=== PATIENT | female | born 1975 | race Two or more races ===

== ENCOUNTER 2021-06-26 11:04 | Emergency (ER) | payer OTHER, SELFPAY ==
--- NOTE | ~2021-06-26 | XR_ITS ---
EXAMINATION: XR CHEST CLINICAL INFORMATION: Shortness of breath COMPARISON: None TECHNIQUE: Frontal view of the chest was obtained. FINDINGS: No significant abnormality is noted involving the heart, lungs, mediastinum, bony thorax or soft tissues. XR/XR chest 1V IMPRESSION: Unremarkable examination.
[2021-06-26 11:44] VITALS: BP 117/84; PULSE 56; RESP 16; TEMP 36.4; O2SAT 98; BMI 44.9
[2021-06-26 12:08] LABS: COVID-19 Test Negative (Negative); IDNOW Serial# 9DD0AD1C
[2021-06-26 12:16] VITALS: BP 128/69; PULSE 57; RESP 18; TEMP 36.1; O2SAT 99
--- NOTE | 2021-06-26 12:34 | ED.SOB ---
HPI - SOB/Dyspnea General Chief Complaint: Dyspnea Stated Complaint: ASTHMA DIFF BREATHING Time Seen by Provider: 06/26/21 12:27 Source: patient Mode of arrival: ambulatory Limitations: no limitations History of Present Illness HPI Narrative: 46 years old female with history of asthma came in with difficulty breathing. Difficulty breathing for 1 day, feels tightness and wheezing in her chest, patient with known history of asthma. Patient also feels generalized weakness, body ache, no recent exposure to sick contacts. Patient was taking her home medication for asthma. Patient declines recent travel or prolonged immobilization. No lower extremities tenderness. Related Data Previous Rx's Medication Instructions Recorded albuterol sulfate 2.5 mg INHALATION QID PRN #75 ml 06/26/21 albuterol sulfate 90 mcg/actuation 1 inh INHALATION QID PRN #6.7 g 06/26/21 aerosol inhaler prednisone 20 mg tablet 20 mg PO BID #10 tab 06/26/21 Allergies Allergy/AdvReac Type Severity Reaction Status Date / Time Seasonal Allergies Allergy Unknown itching Uncoded 06/10/19 00:00 Review of Systems Review of Systems: All other systems are reviewed and are negative Constitutional: Reports as per HPI and Reports no additional constitutional complaints Eyes: Reports as per HPI and Reports no additional eye complaints Reports system reviewed and no additional complaints, except as documented Cardiovascular: Reports as per HPI and Reports no additional cardiovascular complaints Respiratory: Reports as per HPI and Reports no additional respiratory complaints Gastrointestinal: Reports as per HPI and Reports no additional gastrointestinal complaints Genitourinary: Reports no additional female genitourinary complaints Musculoskeletal: Reports no additional musculoskeletal complaints Skin/Breast: Reports system reviewed and no additional complaints, except as docu Psychiatric: Reports no additional psychiatric complaints Endocrine: Reports no additional endocrine complaints Hematologic/Lymphatic: Reports no additional hematologic/lymphatic complaints Allergic/Immunologic: Reports no additional allergic/immunologic complaints Reports system reviewed and no additional complaints, except as documented and Reports Abnormal speech present PMFSH Past Medical History Medical History Asthma Eczema Surgical History History of tubal ligation Hx of cholecystectomy Social History Social History Advance Directives: No Advance Directives Information Provided: No Patient : No Physical Exam Vital Signs: Vital Signs: Last Vital Signs Temp 97 F 06/26/21 12:16 Pulse 49 L 06/26/21 13:08 Resp 18 06/26/21 12:16 BP 128/69 06/26/21 12:16 Pulse Ox 99 06/26/21 12:16 Body Mass Index 44.9 Vital signs have been reviewed as appeared to be correct. Blood pressure normal. Heart rate normal. Respiration rate normal. Temperature normal. Oxygen saturation normal. Appearance: Alert. Oriented X3. No acute distress. Head: Normal external exam. Normocephalic. Atraumatic. No Torres signs noted. No raccoon eyes noted Eyes: PERRLA. EOMI. Conjunctiva and sclera normal. Eyelids normal. ENT: TM's Normal. Pharynx normal. Uvula midline. Moist mucous membranes. No trismus noted. No drooling noted. No muffled voice noted. Neck: Normal inspection. Neck supple. FROM. No adenopathy. Thyroid Normal. No meningeal signs. No neck mass noted. CVS: Normal heart rate and rhythm. Heart sound normal. No murmurs noted. Pulses normal throughout. Respiratory: No respiratory distress. Painless inspiration. Breath sounds normal. Diffuse expiratory wheezing, with prolonged expiration, no rales, no crackles. No accessory muscle usage noted or decreased air movement noted. Abdomen: Soft and nontender. Bowel sounds normal in all 4 quadrants. No distention noted. No organomegaly noted. No visible injury noted. Back: No CVA tenderness. Full range of motion noted. Skin: Skin warm and dry. Normal skin color. Normal skin turgor. No rashes/lesions/lacerations noted. Extremities: No lower extremity edema. Extremities exhibit normal range of motion. Extremities nontender. Neuro: Oriented X 3. Cranial nerve exam: II-XII are grossly intact No motor deficit. No sensory deficit. Reflexes normal. Course Course Course Narrative: Assessment and plan. 46-year-old female history of asthma came in with difficulty breathing, physical exam/chest x-ray is consistent with acute asthma exacerbation, patient felt better with bronchodilator and prednisone given in the emergency department. Will discharge the patient home on prednisone and bronchodilator. MDM - SOB/Dyspnea Medical Records Attestation: I reviewed the patient's medical records. Lab Data Attestation: I reviewed the patient's lab results. Labs: Lab Results 06/26/21 Range/Units 11:49 COVID-19 ([facility]) Negative (Negative) COVID-19 Clin Com See Note Imaging Data Chest x-ray: Radiologist's impression: Unremarkable examination Discharge Plan Discharge Clinical Impression: Asthma with exacerbation Patient Disposition: Home, Self-Care Instructions: Asthma (ED) Prescriptions: New albuterol sulfate 2.5 mg /3 mL (0.083 %) solution for nebulization 2.5 mg inhalation QID PRN (Reason: shortness of breath or wheezing) Qty: 75 RF: 0 albuterol sulfate 90 mcg/actuation HFA aerosol inhaler 1 inh inhalation QID PRN (Reason: shortness of breath or wheezing) Qty: 6.7 RF: 0 prednisone 20 mg tablet 20 mg PO BID Qty: 10 RF: 0 Referrals: Physician,Unknown J [Primary Care Provider] - 2 days Stand Alone Forms: Work/School Release
[2021-06-26] MEDS: predniSONE 20 MG TABLET 60 MG PO (12:39)
[2021-06-26] MEDS: Albuterol/Iprat 2.5/0.5MG 3 ML AMPUL.NEB INHALE (13:07)
[2021-06-26] MEDS: Albuterol Sulfate (0.083%) 2.5 MG/3 ML VIAL.NEB INHALE (13:07)
[2021-06-26 13:08] VITALS: PULSE 49; O2SAT 99
== END 2021-06-26 16:10 | disposition home or self-care (01) ==
PROVIDERS: Emergency Provider Emergency Medicine
DX: J45.901 Unspecified asthma with (acute) exacerbation (principal); Z20.822 Contact with and (suspected) exposure to COVID-19
CPT/HCPCS: 36415; 71045; 87635; 94640; 99283; 99284

== ENCOUNTER 2021-12-06 08:19 | Emergency (ER) | payer BC, SELFPAY ==
--- NOTE | ~2021-12-06 | XR_ITS ---
EXAMINATION: XR CHEST CLINICAL INFORMATION: Cough. COMPARISON: None TECHNIQUE: 2 views of the chest were obtained. FINDINGS: No significant abnormality is noted involving the heart, lungs, mediastinum, bony thorax or soft tissues. XR/XR chest 2V IMPRESSION: Unremarkable chest examination.
[2021-12-06 08:56] VITALS: BP 124/68; PULSE 83; RESP 18; TEMP 37.1; O2SAT 99; BMI 47.2
--- NOTE | 2021-12-06 09:08 | ED_ITS ---
HPI - General Adult General Chief complaint: General Medical Stated complaint: cough fever Time Seen by Provider: 12/06/21 08:21 Source: patient Mode of arrival: ambulatory Limitations: no limitations History of Present Illness HPI narrative: 46 yo female with a history of asthma here with complaints of cough, subjective fevers, chills, body aches, JOSUE since Monday. Granddaughter is flu A positive Related Data Previous Rx's Medication Instructions Recorded albuterol sulfate 2.5 mg (3 mL) INHALATION QID PRN 06/26/21 #75 ml albuterol sulfate 90 mcg/actuation 1 inh INHALATION QID PRN #6.7 g 06/26/21 aerosol inhaler prednisone 20 mg tablet 20 mg PO BID #10 tab 06/26/21 oseltamivir 75 mg capsule (Tamiflu) 75 mg PO Q12H 5 Days #10 cap 12/06/21 prednisone 20 mg tablet 40 mg PO DAILY #8 tab 12/06/21 Allergies Allergy/AdvReac Type Severity Reaction Status Date / Time Seasonal Allergies Allergy Unknown itching Uncoded 06/10/19 00:00 Review of Systems Review of Systems: Yes all other systems are reviewed and are negative Constitutional: Constitutional: Reports no additional constitutional complaints, Reports body ache(s), Reports chills, Reports fever(s), Reports headache(s) and Denies weakness Eyes: Eyes: Reports no additional eye complaints and Denies change in vision ENT: Reports system reviewed and no additional complaints, except as documented, Denies dizziness, Reports headache(s), Reports nasal congestion, Denies nasal discharge and Denies neck pain Cardiovascular: Cardiovascular: Reports no additional cardiovascular complaints, Denies chest pain, Denies leg edema and Denies dyspnea Respiratory: Respiratory: Reports no additional respiratory complaints, Reports cough and Denies dyspnea Gastrointestinal: Gastrointestinal: Reports no additional gastrointestinal complaints, Denies abdominal pain, Denies diarrhea, Denies nausea and Denies vomiting Genitourinary: Genitourinary: Reports no additional female genitourinary complaints and Denies urinary incontinence Musculoskeletal: Musculoskeletal: Reports no additional musculoskeletal complaints, Denies back pain, Denies arthralgias, Denies joint swelling, Denies neck pain, Denies numbness and Denies tingling Integumentary/Breasts: Skin/Breast: Reports system reviewed and no additional complaints, except as docu and Denies rash Neurologic: Reports system reviewed and no additional complaints, except as documented, Denies dizziness, Reports headache(s), Denies numbness, Denies tingling and Denies weakness [facility] Past Medical History Attestation statement: The following information was validated with the patient. Source: old records reviewed and nursing notes reviewed Medical History Asthma Eczema Surgical History History of tubal ligation Hx of cholecystectomy Social History Social History Advance Directives: No Advance Directives Information Provided: No Patient : No Physical Exam ED Vital Signs: Vital Signs - 24 hr 12/06/21 08:56 12/06/21 09:31 Temperature 98.7 F Pulse Rate 83 89 Respiratory Rate 18 18 Blood Pressure 124/68 Pulse Oximetry 99 BMI result Body Mass Index 47.2 Const General: cooperative, healthy appearing, comfortable and no acute distress Orientation/consciousness: patient oriented x3 Limitations: no limitations HENMT Head: Yes normal to inspection Ears: hearing grossly normal bilaterally and TM's normal bilaterally General nose exam: Normal external nose present Face and sinus: Yes normal facial exam Mouth: Normal oral and palatal mucosa present Teeth and gingiva: dentition normal Throat: Yes posterior oropharynx normal, Yes tonsils normal and Yes uvula midline Eyes General: appearance normal, both eyes and all related structures Pupils: Equal, round and reactive pupils present Neck Neck: Yes normal visual inspection, Yes full ROM, Yes no lymphadenopathy and Yes no meningeal signs Chest Chest palpation & inspection: normal inspection of the chest Resp Other: Mild expiratory wheezing Effort & Inspection: normal respiratory effort Cardio Rate: regular rate Rhythm: regular rhythm Peripheral pulses: Peripheral pulses 2+ throughout GI Inspection: Yes normal to inspection Palpation (GI): Soft to palpation and nontender General: Yes no CVA tenderness Back/Spine/Pelvis Back: no CVA tenderness Thoracic/Lumbar Spine: thoracic and lumbar spine normal to inspection Skin General skin exam: no rashes or lesions noted Neuro General: patient oriented x3, moves all extremities and no meningeal signs Cranial nerves: Yes Equal, round and reactive pupils present Extrem General: Yes normal to inspection, Yes no pedal edema and Yes no calf tenderness Course Course Course Narrative: 46-year-old female here with flu-like symptoms with exposure to flu. Patient has mild expiratory wheezing. Will give albuterol, p.o. prednisone, check chest x-ray. Will also check flu and COVID testing 1045-flu screen is positive. Chest x-ray shows no acute finding. Wheezing improved after receiving albuterol. Will discharge home with p prednisone course for asthma exacerbation Tamiflu for flu. Reviewed worrisome signs symptoms when to return to the emergency department. Comfortable discharge home. Medical Decision Making Medical Records Medical records reviewed: Yes I reviewed the patient's medical records. Lab Data Lab results reviewed: Yes I reviewed the patient's lab results. Labs: Lab Results 12/06/21 12/06/21 Range/Units 09:35 09:35 COVID-19 ([facility]) Negative (Negative) COVID-19 Clin Com See Note Influenza Type A ([facility]) Positive A (Negative) Influenza Type B ([facility]) Negative (Negative) Influenza A & B Note See Note Discharge Plan Discharge Clinical Impression: Influenza A Patient Disposition: Home, Self-Care Instructions: Influenza (DC) Additional Instructions: Increase fluids, rest Take Motrin or Tylenol as needed for pain or fever Continue your home medications for asthma Prescriptions: New prednisone 20 mg tablet 40 mg PO DAILY Qty: 8 0RF oseltamivir [Tamiflu] 75 mg capsule 75 mg PO Q12H 5 Days Qty: 10 0RF No Action albuterol sulfate 2.5 mg /3 mL (0.083 %) solution for nebulization 2.5 mg inhalation QID PRN (Reason: shortness of breath or wheezing) Qty: 75 0RF albuterol sulfate 90 mcg/actuation HFA aerosol inhaler 1 inh inhalation QID PRN (Reason: shortness of breath or wheezing) Qty: 6.7 0RF prednisone 20 mg tablet 20 mg PO BID Qty: 10 0RF Referrals: Physician,Unknown J [Primary Care Provider] - 2 days Stand Alone Forms: Work/School Release Interventions: ED Discharge Assessment Last Done: 12/06/21 10:42 Discharge Date/Time: 12/06/21 10:43
[2021-12-06] MEDS: Albuterol Sulfate 90 MCG 8 GM INHALER 4 PUFF INHALE (09:28)
[2021-12-06 09:31] VITALS: PULSE 89; RESP 18; O2SAT 97
[2021-12-06 09:54] LABS: COVID-19 Test Negative (Negative); IDNOW Serial# 16C4AD1C
[2021-12-06 09:56] LABS: Influenza A Positive (Negative); Influenza B2 Negative (Negative)
[2021-12-06] MEDS: predniSONE 20 MG TABLET 60 MG PO (10:36)
== END 2021-12-06 10:43 | disposition home or self-care (01) ==
PROVIDERS: Emergency Provider Emergency Medicine
DX: J11.1 Influenza due to unidentified influenza virus with other respiratory manifestations (principal); J45.909 Unspecified asthma, uncomplicated; Z20.822 Contact with and (suspected) exposure to COVID-19
CPT/HCPCS: 71046; 87502; 87635; 94640; 99282; 99284

== ENCOUNTER 2022-03-24 11:47 | Emergency (ER) | payer OTHER, BC, SELFPAY ==
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
--- NOTE | ~2022-03-24 | XR_ITS ---
EXAMINATION: XR TIBIA AND FIBULA, LEFT CLINICAL INFORMATION: Osteomyelitis. COMPARISON: None TECHNIQUE: AP view of the left tibia and fibula. FINDINGS: No acute fracture or dislocation. No concerning lytic or blastic osseous lesion. No periosteal reaction. No abnormal soft tissue calcification. XR/XR tibia fibula LT 2V IMPRESSION: No acute osseous abnormality.
[2022-03-24 11:58] VITALS: BP 140/76; PULSE 62; RESP 18; TEMP 36.6; O2SAT 99; BMI 49.1
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
== END 2022-03-24 14:39 | disposition home or self-care (01) ==
PROVIDERS: Emergency Provider Emergency Medicine
DX: S13.4XXA Sprain of ligaments of cervical spine, initial encounter (principal); R51.9 Headache, unspecified; M79.605 Pain in left leg; M54.2 Cervicalgia; V43.52XA Car driver injured in collision with other type car in traffic accident, initial encounter; Y93.9 Activity, unspecified; Y92.410 Unspecified street and highway as the place of occurrence of the external cause; Y99.9 Unspecified external cause status; Z79.899 Other long term (current) drug therapy
CPT/HCPCS: 70450; 73590; 99283; 99284

== ENCOUNTER 2022-03-26 09:26 | Emergency (ER) | payer OTHER, BC, SELFPAY ==
[2022-03-26 09:44] VITALS: BP 131/57; PULSE 56; RESP 14; TEMP 36; O2SAT 97; BMI 49.1
[2022-03-26] MEDS: 0.9 % Sodium Chloride 1,000 ML 999 ML IV (11:18)
[2022-03-26] MEDS: Ketorolac Tromethamine 15 MG/ML VIAL IVPUSH (11:22)
[2022-03-26] MEDS: diphenhydrAMINE HCL 50 MG/ML VIAL 12.5 MG IVPUSH (11:27)
[2022-03-26] MEDS: Metoclopramide HCl 10 MG/2 ML VIAL IVPUSH (11:27)
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
== END 2022-03-26 12:36 | disposition home or self-care (01) ==
PROVIDERS: Emergency Provider Emergency Medicine; PCP Physician Assistant Medical
DX: Z04.1 Encounter for examination and observation following transport accident (principal); F07.81 Postconcussional syndrome; R51.9 Headache, unspecified; R11.0 Nausea
CPT/HCPCS: 96361; 96374; 96375; 99284; J1200; J1885; J2765

== ENCOUNTER 2022-06-14 08:26 | Emergency (ER) | payer BC, SELFPAY ==
--- NOTE | ~2022-06-14 | XR_ITS ---
EXAMINATION: XR CHEST CLINICAL INFORMATION: Fall COMPARISON: November 2021. TECHNIQUE: 2 views of the chest were obtained. Patient slightly rotated to the right. FINDINGS: No significant abnormality is noted involving the heart, lungs, mediastinum, bony thorax or soft tissues. Small spondylitic changes of thoracic spine again observed. XR/XR chest 2V IMPRESSION: Unremarkable examination. No significant change since previous examination.
--- NOTE | ~2022-06-14 | XR_ITS ---
EXAMINATION: XR SHOULDER, LEFT CLINICAL INFORMATION: Left shoulder pain. COMPARISON: None TECHNIQUE: AP external rotation, Grashey, scapular Y, and axillary views of the left shoulder. FINDINGS: The bones and soft tissues are normal. No fracture. Glenohumeral and acromioclavicular alignment is anatomic with normal joint space. No abnormal soft tissue calcifications. XR/XR shoulder LT min 2V IMPRESSION: Unremarkable left shoulder.
[2022-06-14 08:59] VITALS: BP 177/63; PULSE 61; RESP 18; TEMP 37.1; O2SAT 98; BMI 49.1
--- NOTE | 2022-06-14 09:29 | ED.FALL ---
HPI - Fall General Chief Complaint: Fall Stated Complaint: fall 06/11/22 rib pain, nauseous Time Seen by Provider: 06/14/22 09:28 Source: patient Mode of arrival: ambulatory Limitations: no limitations History of Present Illness HPI Narrative: 47 yo female with a PMH of diabetes, asthma, & eczema presents to the ER with reports of rib pain and left shoulder pain s/p trip and fall 3 days ago. The patient reports she tripped and fell on concrete while walking, and landed with her arms out and her elbows flexed. She denies head strike, LOC, or being on daily blood thinners. The patient reports the pain is primarily bilateral at the lower rib cage and left shoulder pain. The pain rib cage pain increases with palpation, and movement. The left shoulder pain increases with movement. The patient reports the pain has prevented her from working. The patient is not on blood thinners. MD complaint: fall Onset (ago): day(s) (3) Fall from: other (walking ) Place fall occurred: street Loss of consciousness: none Prolonged down time: no Symptoms prior to fall: none Location of injury: chest and other (left shoulder) Location of injury - extremities: left: shoulder Severity: moderate Quality: sharp Associated symptoms (after fall): denies Related Data Previous Rx's Medication Instructions Recorded albuterol sulfate 2.5 mg/3 mL 2.5 mg (3 mL) inhalation QID PRN 06/26/21 (0.083 %) solution for nebulization shortness of breath or wheezing #75 mL albuterol sulfate 90 mcg/actuation 1 inh inhalation QID PRN shortness 06/26/21 aerosol inhaler of breath or wheezing #6.7 grams prednisone 20 mg tablet 20 mg PO BID #10 tabs 06/26/21 oseltamivir 75 mg capsule (Tamiflu) 75 mg PO Q12H 5 days #10 caps 12/06/21 prednisone 20 mg tablet 40 mg PO DAILY #8 tabs 12/06/21 ptktkfthwa-lekdwmilmvnzw-ynazhyks 1 cap PO Q4-6H PRN headache #14 03/26/22 50 mg-300 mg-40 mg capsule caps (Fioricet) cyclobenzaprine 10 mg tablet 10 mg PO TID PRN muscle spasm #10 06/14/22 tabs lidocaine 5 % topical patch 1 patch topical DAILY #15 ea 06/14/22 naproxen 500 mg tablet 500 mg PO BID PRN pain #20 tabs 06/14/22 Allergies Allergy/AdvReac Type Severity Reaction Status Date / Time Seasonal Allergies Allergy Unknown itching Uncoded 06/10/19 00:00 Review of Systems Review of Systems: Cardiovascular: + Chest Pain located at the lower rib cage, No SOB, No Orthopnea, No Edema Respiratory: No Cough, No Sputum, No Wheezing, + dyspnea Gastrointestinal: No Nausea, No Vomiting, No Diarrhea, No abdominal Pain Musculoskeletal: + left shoulder joint pain, No Myalgias Skin: + abrasion on left elbow, No Skin Lesions, No rash Neuro: No Weakness, No Numbness, No Dizziness, No Headache Heme/Lymph: No Bruising, No Lymphadenopathy Yes all other systems are reviewed and are negative [facility] Past Medical History Medical History Asthma Eczema Surgical History History of tubal ligation Hx of cholecystectomy Social History Social History Advance Directives: No Advance Directives Information Provided: Yes Physical Exam Vital Signs: Vital Signs: Last Vital Signs Temp 98.8 F 06/14/22 08:59 Pulse 61 06/14/22 08:59 Resp 18 06/14/22 08:59 BP 177/63 H 06/14/22 08:59 Pulse Ox 98 06/14/22 08:59 O2 Del Method 06/14/22 08:59 BMI result Body Mass Index 49.1 Appearance: Alert. Oriented X3. No acute distress. Eyes: Pupils equal, round and reactive to light. ENT: Pharynx normal. Neck: Normal inspection. Neck supple. CVS: Normal heart rate and rhythm. Pulses normal. Tender to palpation of the anterior aspect of the lower ribcage bilaterally. Respiratory: No respiratory distress. Breath sounds normal, clear to auscultation bilaterally. Abdomen: Soft and nontender. +BS x4 Skin: Abrasion noted on the left elbow. Skin warm and dry. Normal skin color. Normal skin turgor. No rashes. Extremities: No lower extremity edema. Neuro: Oriented X 3. No motor deficit. No sensory deficit. No weakness. Course Course Course Narrative: 9:45 47 female with PMH of diabetes, asthma, & eczema presents to the ER with reports of rib pain and left shoulder pain s/p trip and fall 3 days ago. Patient has increase lower chest pain and left shoulder pain with with movement. Exam is significant for tenderness to palpation of the lower chest pain, full strength and ROM of left shoulder. Plan: Chest X-rays order, Left shoulder X ray ordered. low clinical suspicion for rib fracture. Reevaluation(s) Reevaluation #1: x-rays without traumatic injury. Most likely soft tissue contusion, possible bruising of rib. Will treat symptomatically as with NSAID, Lidoderm, muscle relaxer. Work note provided per request. She will follow-up with her PCP. Stable for discharge home. oatient agrees wt plan MDM - Fall Imaging Data Chest x-ray: Radiologist's impression: FINDINGS: No significant abnormality is noted involving the heart, lungs, mediastinum, bony thorax or soft tissues. Small spondylitic changes of thoracic spine again observed. XR/XR chest 2V IMPRESSION: Unremarkable examination. No significant change since previous examination. Discharge Plan Discharge Clinical Impression: Chest wall contusion, Acute shoulder pain Patient Disposition: Home, Self-Care Instructions: Contusion in Adults (ED), Shoulder Pain (ED) Additional Instructions: Your x-rays today were unremarkable, no traumatic injuries. Your injuries are most likely due to soft tissue contusion. treatment is supportive care. Pain will improve with time. Recommend taking the prescribed medications as directed as needed for pain. Use ice several times a day to the areas of discomfort. Rest no strenuous activity. Follow-up with your primary care doctor. If you develop new or worsening symptoms call 911 or come back to the ER for further evaluation. Prescriptions: New cyclobenzaprine 10 mg tablet 10 mg PO TID PRN (Reason: muscle spasm) Qty: 10 0RF naproxen 500 mg tablet 500 mg PO BID PRN (Reason: pain) Qty: 20 0RF lidocaine 5 % adhesive patch,medicated 1 patch topical DAILY Qty: 15 0RF Rx Instructions: leave on most painful area for up to 12 hrs No Action albuterol sulfate 2.5 mg /3 mL (0.083 %) solution for nebulization 2.5 mg inhalation QID PRN (Reason: shortness of breath or wheezing) Qty: 75 0RF albuterol sulfate 90 mcg/actuation HFA aerosol inhaler 1 inh inhalation QID PRN (Reason: shortness of breath or wheezing) Qty: 6.7 0RF prednisone 20 mg tablet 20 mg PO BID Qty: 10 0RF prednisone 20 mg tablet 40 mg PO DAILY Qty: 8 0RF oseltamivir [Tamiflu] 75 mg capsule 75 mg PO Q12H 5 Days Qty: 10 0RF eoyuupvjkq-mtpxibltwljbx-amgk [Fioricet] 50-300-40 mg capsule 1 cap PO Q4-6H PRN (Reason: headache) Qty: 14 0RF Referrals: Maria Elena Miller MD [Primary Care Provider] - Stand Alone Forms: Work/School Release Interventions: ED Discharge Assessment Last Done: 06/14/22 11:43 Discharge Date/Time: 06/14/22 11:44
== END 2022-06-14 11:44 | disposition home or self-care (01) ==
PROVIDERS: Emergency Provider Emergency Medicine; PCP Internal Medicine
DX: S20.213A Contusion of bilateral front wall of thorax, initial encounter (principal); M25.512 Pain in left shoulder; R07.81 Pleurodynia; W01.0XXA Fall on same level from slipping, tripping and stumbling without subsequent striking against object, initial encounter; Y93.9 Activity, unspecified; Y92.9 Unspecified place or not applicable; Y99.9 Unspecified external cause status; Z79.899 Other long term (current) drug therapy
CPT/HCPCS: 71046; 73030; 99282; 99283

== ENCOUNTER 2022-08-25 09:20 | Outpatient (REF) | payer OTHER, SELFPAY ==
--- NOTE | ~2022-08-25 | XR_ITS ---
EXAMINATION: XR CHEST CLINICAL INFORMATION: Morbid obesity COMPARISON: June 14, 2022 TECHNIQUE: 2 views of the chest were obtained. FINDINGS: No significant abnormality is noted involving the heart, lungs, mediastinum, bony thorax or soft tissues. XR/XR chest 2V IMPRESSION: No acute disease.
--- NOTE | 2022-08-25 09:26 | ECG_ITS ---
Test Reason : Morbid Obesity Blood Pressure : / mmHG Vent. Rate : 076 BPM Atrial Rate : 076 BPM P-R Int : 196 ms QRS Dur : 096 ms QT Int : 412 ms P-R-T Axes : 023 -13 011 degrees QTc Int : 463 ms Normal sinus rhythm Minimal voltage criteria for LVH, may be normal variant ( Kensal product ) Borderline ECG No previous ECGs available Referred By: Vinny Howe Electronically Signed By:DENISE FOSTER
[2022-08-25 09:47] LABS: MANUAL DIFF FLAG NO
[2022-08-25 10:03] LABS: Basophils Percent Auto 0.3 % (0-2); Eosinophils Absolute Auto 0.1 X10*3/uL (0.0-0.4); Eosinophils Percent Auto 1.5 % (0-4); Hematocrit 41.2 % (37.0-47.0); Hemoglobin 13.1 g/dl (12.0-16.0); Imm Gran Abs Auto 0.06 X10*3/uL (0.00-0.03); Imm Gran Pct Auto 0.7 % (0.0-0.4); Lymphocytes Absolute Auto 3.2 X10*3/uL (1.2-4.9); Lymphocytes Percent Auto 35.2 % (20-40); Mean Corpuscular HGB Conc 31.8 g/dl (31.0-35.0); Mean Corpuscular Hemoglobin 26.8 pg (27.0-33.0); Mean Corpuscular Volume 84.4 fL (80.0-98.0); Mean Platelet Volume 10.7 fL (9.4-12.3); Monocytes Absolute Auto 0.7 X10*3/uL (0.1-1.2); Monocytes Percent Auto 7.7 % (2-11); Neutrophils Absolute Auto 4.9 x10*3/uL (2.0-8.3); Neutrophils Percent Auto 54.6 % (45-73); Platelet Count 293 X10*3/uL (160-400); Red Blood Count 4.88 X10*6/uL (4.20-5.50); Red Cell Distribution Width 13.2 % (11.0-16.0)
[2022-08-25 11:53] LABS: Estimated Average Glucose 151 mg/dL; Hemoglobin A1c % 6.9 %
[2022-08-25 13:18] LABS: Alanine Aminotransferase 25 U/L (0-31); Albumin Level 4.5 g/dL (3.5-5.0); Alkaline Phosphatase 148 U/L (39-117); Anion Gap 15 (12-20); Aspartate Amino Transferase 21 U/L (5-31); Bilirubin Total 0.8 mg/dL (0.0-1.0); Blood Urea Nitrogen 8 mg/dL (9-16); C Reactive Protein 0.62 mg/dL (< or = 0.50); Calcium 9.7 mg/dL (8.4-10.2); Carbon Dioxide 25 mmol/L (22-29); Chloride 102 mmol/L (96-108); Cholesterol 185 mg/dL; Estimated Glomerular Filt Rate > 60; Ferritin 74 ng/mL (10-250); Glucose Random 122 mg/dL (60-115); HDL Cholesterol 54 mg/dL; Insulin 19 uU/mL (2-29); Iron 76 mcg/dL (30-160); LDL Cholesterol Calculated 107 mg/dl; Percent Iron Saturation 22 % (15-50); Potassium 4.3 mmol/L (3.3-5.1); Sodium 138 mmol/L (135-145); TSH reflex Free T4 1.82 uIU/mL (0.32-4.0); Total Iron Binding Capacity 349 mcg/dL (228-428); Total Protein 7.6 g/dL (6.5-8.0); Triglycerides 124 mg/dL; Unsaturated Iron Binding 273 ug/dL; Vitamin D 25-OH Total 15.2 ng/mL (>30)
[2022-08-25 13:47] LABS: Folate 12.3 ng/mL (> or = 4.0); Vitamin B12 574 pg/mL (200-900)
[2022-08-29 11:54] LABS: Calcium (PTHI) 9.7 mg/dL (8.6-10.2); PTHI 56 pg/mL (16-77)
[2022-08-31 20:33] LABS: Zinc 101 mcg/dL (60-130)
[2022-08-31 21:23] LABS: Vitamin A 45 mcg/dL (38-98)
[2022-09-03 10:03] LABS: Vitamin B1 9 nmol/L (8-30)
== END 2022-08-25 09:21 | disposition home or self-care (01) ==
LOC: HO.LAB 09:20
PROVIDERS: PCP Internal Medicine; Visit Provider Surgery
DX: E66.01 Morbid (severe) obesity due to excess calories (principal); E11.9 Type 2 diabetes mellitus without complications; G47.30 Sleep apnea, unspecified; J45.909 Unspecified asthma, uncomplicated; K21.9 Gastro-esophageal reflux disease without esophagitis
CPT/HCPCS: 36415; 71046; 80053; 80061; 82306; 82607; 82728; 82746; 83036; 83525; 83540; 83970; 84425; 84443; 84590; 84630; 85025; 86140; 93005

== ENCOUNTER → 2022-09-02 08:54 | Outpatient (BNVA) | payer OTHER, SELFPAY | PROVIDERS: PCP Internal Medicine; Referring Provider Internal Medicine; Visit Provider Physician Assistant Surgical | DX: Z79.01 Long term (current) use of anticoagulants (principal) ==

== ENCOUNTER 2022-09-08 08:42 | Outpatient (REF) | payer OTHER, SELFPAY ==
[2022-09-09 15:20] LABS: H Pylori Breath Test Negative (Negative)
== END 2022-09-08 08:43 | disposition home or self-care (01) ==
LOC: HO.LNP 08:42
PROVIDERS: Surgery; PCP Internal Medicine; Visit Provider Physician Assistant
DX: K21.9 Gastro-esophageal reflux disease without esophagitis (principal); E66.01 Morbid (severe) obesity due to excess calories; J45.909 Unspecified asthma, uncomplicated; E11.9 Type 2 diabetes mellitus without complications; G47.30 Sleep apnea, unspecified
CPT/HCPCS: 83013; 99211

== ENCOUNTER → 2022-09-09 10:37 | Outpatient (BNVA) | payer OTHER, SELFPAY | PROVIDERS: PCP Internal Medicine; Visit Provider Physician Assistant | DX: Z13.89 Encounter for screening for other disorder (principal) ==

== ENCOUNTER → 2022-09-14 10:01 | Outpatient (BNVA) | payer OTHER, SELFPAY | PROVIDERS: PCP Internal Medicine; Visit Provider Dietitian, Registered | DX: E66.01 Morbid (severe) obesity due to excess calories (principal) | CPT/HCPCS: 97802 ==

== ENCOUNTER → 2022-09-16 08:29 | Outpatient (BNVA) | payer OTHER, SELFPAY | PROVIDERS: PCP Internal Medicine; Visit Provider Physician Assistant Surgical | DX: Z13.89 Encounter for screening for other disorder (principal) ==

== ENCOUNTER → 2022-09-19 08:32 | Outpatient (BNVA) | payer OTHER, SELFPAY | PROVIDERS: PCP Internal Medicine; Visit Provider Surgery | DX: Z13.89 Encounter for screening for other disorder (principal) ==

== ENCOUNTER → 2022-09-23 13:28 | Outpatient (BNVA) | payer OTHER, SELFPAY | PROVIDERS: PCP Internal Medicine; Visit Provider Physician Assistant Surgical | DX: Z13.89 Encounter for screening for other disorder (principal) ==

== ENCOUNTER → 2022-09-30 09:52 | Outpatient (BNVA) | payer OTHER, SELFPAY | PROVIDERS: PCP Internal Medicine; Visit Provider Physician Assistant Surgical | DX: Z13.89 Encounter for screening for other disorder (principal) ==

== ENCOUNTER → 2022-10-03 08:23 | Outpatient (BNVA) | payer OTHER, SELFPAY | PROVIDERS: PCP Internal Medicine; Visit Provider Counselor Mental Health | DX: F33.1 Major depressive disorder, recurrent, moderate (principal); F41.1 Generalized anxiety disorder; E66.01 Morbid (severe) obesity due to excess calories; G47.30 Sleep apnea, unspecified | CPT/HCPCS: 90791 ==

== ENCOUNTER → 2022-10-07 09:55 | Outpatient (BNVA) | payer OTHER, SELFPAY | PROVIDERS: PCP Internal Medicine; Visit Provider Physician Assistant | DX: Z13.89 Encounter for screening for other disorder (principal) ==

== ENCOUNTER → 2022-10-10 09:53 | Outpatient (BNVA) | payer OTHER, SELFPAY | PROVIDERS: PCP Internal Medicine; Visit Provider Dietitian, Registered | DX: E66.01 Morbid (severe) obesity due to excess calories (principal); E11.9 Type 2 diabetes mellitus without complications; Z71.3 Dietary counseling and surveillance | CPT/HCPCS: 97803 ==

== ENCOUNTER 2022-10-14 08:16 | Outpatient (REF) | payer OTHER, SELFPAY ==
--- NOTE | ~2022-10-14 | FL_ITS ---
EXAMINATION: XR FLUOROSCOPY UPPER GI WITH AIR CLINICAL INFORMATION: Bariatric service evaluation, E66.01 COMPARISON: None TECHNIQUE: Upper GI series is performed using fluoroscopic evaluation in addition to multiple fluoroscopic spot views. The patient is imaged both upright and prone and using both thick and thin barium sulfate along with effervescent granules. Fluoroscopy time: 1.1 minutes DAP: 14.679 Gycm2 Fluoroscopic spot and last image saved images: 14 FINDINGS: There is normal esophageal motility. There is no obstruction, stricture, ulceration, or hernia. No gastroesophageal reflux is demonstrated. The stomach shows no thickened folds or ulcer crater or outlet obstruction. The duodenal bulb is pliable and without ulcer crater or scarring. The post bulbar duodenum the jejunal mucosal pattern are unremarkable. FL/FL upper GI w air IMPRESSION: Normal study.
--- NOTE | ~2022-10-14 | US_ITS ---
EXAMINATION: US COMPLETE ABDOMEN WITH LIVER ELASTOGRAPHY CLINICAL INFORMATION: Obesity. COMPARISON: None. TECHNIQUE: Real-time imaging of the abdominal viscera. Noninvasive ultrasound liver fibrosis assessment is performed using Percy ElastPQ point quantification shear wave elastography (2D-SWE) with a C5-2 MHz transducer. Multiple elastography samples are obtained. FINDINGS: PANCREAS: Largely obscured from visualization by overlapping bowel gas. ABDOMINAL AORTA: The proximal, middle, and distal aortic segments are normal in caliber. INFERIOR VENA CAVA: Visualized portions are normal. LIVER: The liver demonstrates normal size, contour and generally increased echogenicity. No focal lesion or intrahepatic biliary duct dilatation. The right lobe measures 21.0 cm in length. The left lobe measures 14.4 cm in length. Portal flow is towards the liver (hepatopetal). Shear wave liver elastography median stiffness is 1.27 m/s (reference: normal median stiffness is 1.3 m/s or less). IQR/median stiffness to assess sampling precision is 0.06 (reference: good quality data set is IQR/median stiffness of 0.15 or less). GALLBLADDER: Normal. The gallbladder is physiologically distended without evidence of stones, sludge, polyps, wall thickening or pericholecystic fluid. COMMON BILE DUCT: Normal in caliber measuring 0.5 cm in diameter. RIGHT KIDNEY: Normal. No hydronephrosis. No renal calculi or focal parenchymal lesions. The kidney measures 12.8 cm in maximum dimension. LEFT KIDNEY: Normal. No hydronephrosis. No renal calculi or focal parenchymal lesions. The kidney measures 12.0 cm in maximum dimension. SPLEEN: Normal. The spleen measures 11.3 cm in maximum dimension. FREE FLUID: None. US/US abdomen comp w elastography IMPRESSION: 1. There is hepatomegaly. 2. There is generalized increase in hepatic echotexture, consistent with fatty infiltration or hepatocellular disease. Please correlate clinically. No focal hepatic mass or intrahepatic biliary dilatation is seen. 3. Liver elastography: Measurements are consistent with a high probability of normal liver stiffness. 4. Technically limited ultrasound examination of the pancreas. REFERENCE: Society of Radiologists in Ultrasound Liver Stiffness Thresholds (2020): LIVER STIFFNESS THRESHOLDS: *Liver Stiffness equal or less than 1.3 m/s: High probability of being normal. *Liver Stiffness less than 1.7 m/s: In the absence of other known clinical signs, rules out compensated advanced chronic liver disease. *Liver Stiffness 1.7-2.1 m/s: Suggestive of compensated advanced chronic liver disease but need further test for confirmation. *Liver Stiffness over 2.1 m/s: Rules in compensated advanced chronic liver disease. *Liver Stiffness over 2.4 m/s: Suggestive of clinically significant portal hypertension. QUALITY OF DATA SET: *IQR/Median value equal or less than 0.15 implies a quality data set. *IQR/Median value over 0.15 implies a poor quality data set. SIGNIFICANT CHANGE FROM PRIOR EXAM: Significant change if liver stiffness measurement is 10% or greater from prior exam. OTHER CONSIDERATIONS: The stage of liver fibrosis may be overestimated in the setting of acute hepatitis, liver inflammation, elevated liver function tests, hepatic vascular congestion, obstructive cholestasis, non-fasting state, and infiltrative diseases such as amyloidosis and lymphoma. In some patients with NAFLD, the liver stiffness thresholds for compensated advanced chronic liver disease may be lower. In causes other than viral hepatitis and NAFLD, liver stiffness thresholds are not well established.
== END 2022-10-14 08:17 | disposition home or self-care (01) ==
LOC: HO.US 08:16
PROVIDERS: Visit Provider Surgery
DX: Z01.818 Encounter for other preprocedural examination (principal); E66.01 Morbid (severe) obesity due to excess calories; K21.9 Gastro-esophageal reflux disease without esophagitis; G47.30 Sleep apnea, unspecified; J45.909 Unspecified asthma, uncomplicated; E11.9 Type 2 diabetes mellitus without complications
CPT/HCPCS: 74246; 76705; 76981

== ENCOUNTER → 2022-10-17 09:02 | Outpatient (BNVA) | payer OTHER, SELFPAY | PROVIDERS: PCP Internal Medicine; Visit Provider Surgery | DX: Z13.89 Encounter for screening for other disorder (principal) ==

== ENCOUNTER → 2022-10-28 15:09 | Outpatient (BNVA) | payer OTHER, SELFPAY | PROVIDERS: PCP Internal Medicine; Visit Provider Physician Assistant | DX: Z13.89 Encounter for screening for other disorder (principal) ==

== ENCOUNTER → 2022-11-08 12:50 | Outpatient (BNVA) | payer OTHER, SELFPAY | PROVIDERS: PCP Internal Medicine; Visit Provider Physician Assistant Surgical | DX: Z13.89 Encounter for screening for other disorder (principal) ==

== ENCOUNTER → 2022-11-16 08:10 | Outpatient (BNVA) | payer OTHER, SELFPAY | PROVIDERS: PCP Internal Medicine; Visit Provider Surgery ==

== ENCOUNTER → 2022-11-23 08:58 | Outpatient (BNVA) | payer OTHER, SELFPAY | PROVIDERS: PCP Internal Medicine; Visit Provider Physician Assistant Surgical ==

== ENCOUNTER → 2022-11-24 16:00 | Outpatient (BNVA) | payer OTHER, SELFPAY | PROVIDERS: PCP Internal Medicine; Visit Provider Counselor Mental Health ==

== ENCOUNTER → 2022-11-30 10:08 | Outpatient (BNVA) | payer OTHER, SELFPAY | PROVIDERS: PCP Internal Medicine; Referring Provider Internal Medicine; Visit Provider Physician Assistant ==

== ENCOUNTER → 2022-12-09 08:26 | Outpatient (BNVA) | payer OTHER, SELFPAY | PROVIDERS: PCP Internal Medicine; Visit Provider Physician Assistant Surgical ==

== ENCOUNTER → 2022-12-16 08:02 | Outpatient (BNVA) | payer OTHER, SELFPAY | PROVIDERS: PCP Internal Medicine; Visit Provider Surgery ==

== ENCOUNTER → 2022-12-23 08:27 | Outpatient (BNVA) | payer OTHER, SELFPAY | PROVIDERS: PCP Internal Medicine; Visit Provider Physician Assistant Surgical ==

== ENCOUNTER → 2022-12-30 11:33 | Outpatient (BNVA) | payer OTHER, SELFPAY | PROVIDERS: PCP Internal Medicine; Visit Provider Physician Assistant Surgical ==

== ENCOUNTER → 2023-01-04 08:27 | Outpatient (BNVA) | payer OTHER, SELFPAY | PROVIDERS: PCP Internal Medicine; Visit Provider Surgery ==

== ENCOUNTER → 2023-01-06 12:33 | Outpatient (BNVA) | payer OTHER, SELFPAY | PROVIDERS: PCP Internal Medicine; Visit Provider Surgery ==

== ENCOUNTER → 2023-01-16 11:01 | Outpatient (BNVA) | payer OTHER, SELFPAY | PROVIDERS: PCP Internal Medicine; Visit Provider Physician Assistant Surgical ==

== ENCOUNTER 2023-01-19 10:30 | Inpatient (IN) | payer OTHER, SELFPAY ==
[2023-01-09 09:30] LABS: MANUAL DIFF FLAG NO
[2023-01-09 09:48] LABS: Basophils Percent Auto 0.1 % (0-2); Eosinophils Absolute Auto 0.1 X10*3/uL (0.0-0.4); Eosinophils Percent Auto 1.3 % (0-4); Hematocrit 38.7 % (37.0-47.0); Hemoglobin 12.5 g/dl (12.0-16.0); Imm Gran Abs Auto 0.03 X10*3/uL (0.00-0.03); Imm Gran Pct Auto 0.4 % (0.0-0.4); Lymphocytes Absolute Auto 2.8 X10*3/uL (1.2-4.9); Lymphocytes Percent Auto 39.8 % (20-40); Mean Corpuscular HGB Conc 32.3 g/dl (31.0-35.0); Mean Corpuscular Hemoglobin 27.2 pg (27.0-33.0); Mean Corpuscular Volume 84.1 fL (80.0-98.0); Mean Platelet Volume 10.2 fL (9.4-12.3); Monocytes Absolute Auto 0.6 X10*3/uL (0.1-1.2); Monocytes Percent Auto 7.9 % (2-11); Neutrophils Absolute Auto 3.5 x10*3/uL (2.0-8.3); Neutrophils Percent Auto 50.5 % (45-73); Platelet Count 250 X10*3/uL (160-400); Red Cell Distribution Width 14.5 % (11.0-16.0)
[2023-01-09 09:56] LABS: INTERNATIONAL NORM RATIO 1.2 (0.9-1.1); Prothrombin Time 13.4 SEC (10.0-13.1)
[2023-01-09 09:59] LABS: Partial Thromboplastin Time 35.6 SEC (26.0-36.4)
[2023-01-09 11:42] LABS: Alanine Aminotransferase 30 U/L (0-31); Albumin Level 4.2 g/dL (3.5-5.0); Alkaline Phosphatase 145 U/L (39-117); Anion Gap 14 (12-20); Aspartate Amino Transferase 22 U/L (5-31); Bilirubin Total 1.2 mg/dL (0.0-1.0); Blood Urea Nitrogen 8 mg/dL (9-16); C Reactive Protein 0.29 mg/dL (< or = 0.50); Calcium 9.3 mg/dL (8.4-10.2); Carbon Dioxide 25 mmol/L (22-29); Chloride 105 mmol/L (96-108); Cholesterol 132 mg/dL; Estimated Glomerular Filt Rate > 60; Glucose Random 132 mg/dL (60-115); HDL Cholesterol 48 mg/dL; LDL Cholesterol Calculated 70 mg/dl; Potassium 4.5 mmol/L (3.3-5.1); Sodium 139 mmol/L (135-145); Triglycerides 73 mg/dL
[2023-01-09 12:07] LABS: TSH reflex Free T4 1.74 uIU/mL (0.32-4.0)
[2023-01-09 12:24] LABS: Insulin 17 uU/mL (2-29)
[2023-01-09 12:41] LABS: Estimated Average Glucose 146 mg/dL; Hemoglobin A1c % 6.7 %
[2023-01-12 11:46] VITALS: BMI 47.2
--- NOTE | 2023-01-13 23:07 | MHC.SHP ---
Pre-Procedural Eval Section A Date of Service: 01/13/23 The patient is an INPATIENT: Yes The History & Physical has been completed within 30 days and I have reviewed it.: No Section B Chief Complaint: Morbid (severe) obesity due to excess calories Relevant Family History (Specify if Yes): No Relevant Social History: None Present Medications: None Medical History: No relevant PMH History of Previous Operations: No relevant previous surgery Allergies: Allergies Allergy/AdvReac Type Severity Reaction Status Date / Time Seasonal Allergies Allergy Unknown itching Uncoded 01/04/23 10:48 Review of Systems Sugical H&P ROS: Negative: Constitution, Cardiovascular, Respiratory, Neurological, Psychiatric, Hem-Onc, Allergic/Immunologic, Gastrointestinal, Genitourinary, Musculoskeletal, Integumentary, Endocrine and Eyes/Ears/Nose/Throat Exam Surgical H&P Exam: Normal: HEENT, Normal: Heart, Normal: Lungs, Normal: Extremities, Normal: Abdomen, Normal: Skin and Normal: Neurological Plan Diagnosis/Plan: Unchanged I have reviewed the history and physical and performed a pertinent physical examination on my patient. No changes have occurred unless specified. Time Spent With Patient Time: Total time managing care of this patient today ____ minutes.
--- NOTE | 2023-01-18 10:22 | P.CONAN_ITS ---
Documented by User: Annette Gonzalez NP 01/18/23 10:24 HPI - Anesthesia Eval Consult details Narrative: 47yo F for Gastrectomy Sleeve,EGD,Poss Diaphragmatic Hernia, Poss Ventral Hernia, Poss Open. PMF Active Problems Active Problems: All Active Problems (Updated 01/12/23 @ 11:51 by Kassandra Li, MARIA EUGENIA) Sleep apnea with use of continuous positive airway pressure (CPAP) (Acute) Vitamin D deficiency (Acute) Major depressive disorder, recurrent, moderate (Acute) Generalized anxiety disorder (Acute) Anxiety (Acute) Depression (Acute) GERD (gastroesophageal reflux disease) (Acute) Non-insulin dependent type 2 diabetes mellitus (Acute) DJD (degenerative joint disease) (Acute) Eczema (Acute) Asthma (Acute) Morbid obesity (Acute) Past Medical History Medical History Anxiety Asthma Depression DJD (degenerative joint disease) Eczema GERD (gastroesophageal reflux disease) Hx of menorrhagia Migraines Morbid obesity Non-insulin dependent type 2 diabetes mellitus Family History Family History Mother Diabetes Cancer Father Hypertension Diabetes Emphysema lung Heart disease Sister Asthma Heart disease Sister No problems noted. Son Asthma Son No problems noted. Daughter No problems noted. Surgical History Surgical History History of tubal ligation Hx of carpal tunnel repair Hx of cholecystectomy Social History Social History Are you a primary patient centered care specialist to a significant other at home: No Do you presently have visiting nurse or other home services: No Alcohol intake: never Patient Tobacco Use Status: Former Tobacco user Quit Date: 2016 Use of substances other than those prescribed or required for medical reasons: No Have you been hit, kicked, punched, or otherwise hurt by someone within the past year? If so, by whom?: No Are you DNR?: No Advance Directives: No Advance Directives Information Provided: Yes Advance Directives on File: No Recently lost weight without trying: No Nutrition Risks: No Nutritional Risk Patient : No FDLMP: 12/29/2022 : No Poor oral hygiene: No Meds Allergies Allergy/AdvReac Type Severity Reaction Status Date / Time Seasonal Allergies Allergy Unknown itching Uncoded 01/19/23 10:43 Home Medications Medication Instructions Recorded Confirmed Last Taken Type blood sugar diagnostic 08/16/22 01/19/23 Unknown History blood sugar diagnostic 08/16/22 01/19/23 Unknown History cetirizine 10 mg tablet 10 mg PO DAILY PRN Allergy Symptoms 08/16/22 01/19/23 01/18/23 History colestipol 1 gram tablet (Colestid) 2 g PO BID 08/16/22 01/19/23 01/18/23 History dupilumab 300 mg/2 mL subcutaneous 300 mg subcut Q2W 08/16/22 01/19/23 01/05/23 History pen injector (Dupixent) fluticasone propionate 110 1 puff inhalation BID 08/16/22 01/19/23 01/18/23 History mcg/actuation HFA aerosol inhaler ibuprofen 800 mg tablet (IBU) 800 mg PO Q8H 08/16/22 01/19/23 01/05/23 History metoclopramide HCl 10 mg tablet 10 mg PO Q6H PRN Nausea 08/16/22 01/19/23 Unknown History (Reglan) montelukast 10 mg tablet 10 mg PO DAILY 08/16/22 01/19/23 01/18/23 History sumatriptan succinate 25 mg tablet 25 mg PO Q2-4H PRN Headache 08/16/22 01/19/23 Unknown History atorvastatin 10 mg tablet 10 mg PO DAILY 11/30/22 01/19/23 01/18/23 History cholecalciferol (vitamin D3) 50 50 mcg PO DAILY 11/30/22 01/19/23 01/17/23 History mcg (2,000 unit) capsule (D3-2000) metformin 1,000 mg tablet 1,000 mg PO DAILY 11/30/22 01/19/23 01/18/23 History buspirone 5 mg tablet 5 mg PO BID 01/12/23 01/19/23 01/18/23 History albuterol sulfate 90 mcg/actuation 1 inh inhalation QID PRN shortness 01/19/23 01/19/23 01/19/23 06:45 History aerosol inhaler (ProAir HFA) of breath or wheezing cholecalciferol (vitamin D3) 125 125 mcg PO DAILY 01/19/23 01/19/2323 History mcg (5,000 unit) capsule (D3-5000) ondansetron 4 mg disintegrating 4 mg PO Q12H PRN Nausea And 01/19/23 01/19/23 Unknown History tablet Vomiting sucralfate 100 mg/mL oral 10 ml PO BID 01/19/23 01/19/23 Unknown History suspension (Carafate) Exam Exam Date and Time: January 18, 2023 1022 Height,Weight and Vital Signs: Height 5 ft 1 in Weight 113.398 kg Pertinent Lab Results Pertinent Lab Results: Laboratory Tests 01/09/23 01/09/23 01/09/23 09:25 09:30 09:30 WBC 7.0 RBC 4.60 Hgb 12.5 Hct 38.7 MCV 84.1 MCH 27.2 MCHC 32.3 RDW 14.5 Plt Count 250 MPV 10.2 Immature Gran % (Auto) 0.4 Neut % (Auto) 50.5 Lymph % (Auto) 39.8 Ross % (Auto) 7.9 Eos % (Auto) 1.3 Baso % (Auto) 0.1 Lymph # (Auto) 2.8 Ross # (Auto) 0.6 Eos # (Auto) 0.1 Baso # (Auto) 0.0 Abs Immat Gran (auto) 0.03 Absolute Neuts (auto) 3.5 Absolute Nucleated RBC 0.000 Nucleated RBC % (auto) 0.0 PT 13.4 H INR 1.2 H APTT 35.6 Sodium Potassium Chloride Carbon Dioxide Anion Gap BUN Creatinine Estim Creat Clear Calc Estimated GFR Random Glucose Estimat Average Glucose Hemoglobin A1c % Insulin Level Calcium Total Bilirubin AST ALT Alkaline Phosphatase C-Reactive Protein Total Protein Albumin Triglycerides Cholesterol LDL Cholesterol, Calc HDL Cholesterol TSH Blood Type O Positive Antibody Screen NEGATIVE 01/09/23 01/09/23 09:30 09:30 WBC RBC Hgb Hct MCV MCH MCHC RDW Plt Count MPV Immature Gran % (Auto) Neut % (Auto) Lymph % (Auto) Ross % (Auto) Eos % (Auto) Baso % (Auto) Lymph # (Auto) Ross # (Auto) Eos # (Auto) Baso # (Auto) Abs Immat Gran (auto) Absolute Neuts (auto) Absolute Nucleated RBC Nucleated RBC % (auto) PT INR APTT Sodium 139 Potassium 4.5 Chloride 105 Carbon Dioxide 25 Anion Gap 14 BUN 8 L Creatinine 0.66 Estim Creat Clear Calc TNP Estimated GFR > 60 Random Glucose 132 H Estimat Average Glucose 146 Hemoglobin A1c % 6.7 Insulin Level 17 Calcium 9.3 Total Bilirubin 1.2 H AST 22 ALT 30 Alkaline Phosphatase 145 H C-Reactive Protein 0.29 Total Protein 7.0 Albumin 4.2 Triglycerides 73 Cholesterol 132 LDL Cholesterol, Calc 70 HDL Cholesterol 48 TSH 1.74 Blood Type Antibody Screen Narrative Narrative: EKG 08/2022 Vent. Rate : 076 BPM ? ? Atrial Rate : 076 BPM ?? P-R Int : 196 ms? QRS Dur : 096 ms ? ? QT Int : 412 ms ? ? ? P-R-T Axes : 023 -13 011 degrees ?? QTc Int : 463 ms ? Normal sinus rhythm Minimal voltage criteria for LVH, may be normal variant ( Royce product ) Borderline ECG No previous ECGs available Assessment and Plan Assessment Anesthesia Assessment: Chart Reviewed Documented by User: Cesilia Brasher MD 01/19/23 13:28 [facility] Past Medical History Medical History Anxiety Asthma Depression DJD (degenerative joint disease) Eczema GERD (gastroesophageal reflux disease) Hx of menorrhagia Migraines Morbid obesity Non-insulin dependent type 2 diabetes mellitus Family History Family History Mother Diabetes Cancer Father Hypertension Diabetes Emphysema lung Heart disease Sister Asthma Heart disease Sister No problems noted. Son Asthma Son No problems noted. Daughter No problems noted. Surgical History Surgical History History of tubal ligation Hx of carpal tunnel repair Hx of cholecystectomy History of Problems with Anesthesia: No Social History Social History Are you a primary patient centered care specialist to a significant other at home: No Do you presently have visiting nurse or other home services: No Alcohol intake: never Patient Tobacco Use Status: Former Tobacco user Quit Date: 2016 Use of substances other than those prescribed or required for medical reasons: No Have you been hit, kicked, punched, or otherwise hurt by someone within the past year? If so, by whom?: No Are you DNR?: No Advance Directives: No Advance Directives Information Provided: Yes Advance Directives on File: No Recently lost weight without trying: No Nutrition Risks: No Nutritional Risk Patient : No FDLMP: 12/29/2022 : No Poor oral hygiene: No Meds Allergies Allergy/AdvReac Type Severity Reaction Status Date / Time Seasonal Allergies Allergy Unknown itching Uncoded 01/19/23 10:43 Home Medications Medication Instructions Recorded Confirmed Last Taken Type blood sugar diagnostic 08/16/22 01/19/23 Unknown History blood sugar diagnostic 08/16/22 01/19/23 Unknown History cetirizine 10 mg tablet 10 mg PO DAILY PRN Allergy Symptoms 08/16/22 01/19/23 01/18/23 History colestipol 1 gram tablet (Colestid) 2 g PO BID 08/16/22 01/19/23 01/18/23 History dupilumab 300 mg/2 mL subcutaneous 300 mg subcut Q2W 08/16/22 01/19/23 01/05/23 History pen injector (Dupixent) fluticasone propionate 110 1 puff inhalation BID 08/16/22 01/19/23 01/18/23 History mcg/actuation HFA aerosol inhaler ibuprofen 800 mg tablet (IBU) 800 mg PO Q8H 08/16/22 01/19/23 01/05/23 History metoclopramide HCl 10 mg tablet 10 mg PO Q6H PRN Nausea 08/16/22 01/19/23 Unknown History (Reglan) montelukast 10 mg tablet 10 mg PO DAILY 08/16/22 01/19/23 01/18/23 History sumatriptan succinate 25 mg tablet 25 mg PO Q2-4H PRN Headache 08/16/22 01/19/23 Unknown History atorvastatin 10 mg tablet 10 mg PO DAILY 11/30/22 01/19/23 01/18/23 History cholecalciferol (vitamin D3) 50 50 mcg PO DAILY 11/30/22 01/19/23 01/17/23 History mcg (2,000 unit) capsule (D3-2000) metformin 1,000 mg tablet 1,000 mg PO DAILY 11/30/22 01/19/23 01/18/23 History buspirone 5 mg tablet 5 mg PO BID 01/12/23 01/19/23 01/18/23 History albuterol sulfate 90 mcg/actuation 1 inh inhalation QID PRN shortness 01/19/23 01/19/23 01/19/23 06:45 History aerosol inhaler (ProAir HFA) of breath or wheezing cholecalciferol (vitamin D3) 125 125 mcg PO DAILY 01/19/23 01/19/23 01/17/23 History mcg (5,000 unit) capsule (D3-5000) ondansetron 4 mg disintegrating 4 mg PO Q12H PRN Nausea And 01/19/23 01/19/23 Unknown History tablet Vomiting sucralfate 100 mg/mL oral 10 ml PO BID 01/19/23 01/19/23 Unknown History suspension (Carafate) Exam Airway Mallampati Class: III TM Dist: >3cm Neck ROM: Full Loose/Missing/Broken Teeth: Yes (chipped left upper tooth) Heart: RRR Lungs: CTA Assessment and Plan Assessment Anesthesia Assessment: Anesthesia Plan Discussed Final Anesthetic Review History of Problems with Anesthesia: No NPO: Yes ASA Class: III Final Preanesthetic Review: Meds/Allgs Chart Reviewed, Consent Obtained/Reviewed and Anes Risks/Benef Reviewed Patient Risk: Intermediate Procedure Risk: Intermediate Anesthetic Plan Anesthetic Plan: GA Disposition: Standard PACU
[2023-01-18 13:00] LABS: IDNOW Serial# BCCEAD1C
[2023-01-18 13:01] LABS: COVID-19 Test Negative (Negative)
[2023-01-19] VITALS (10 sets, daily range): BP systolic 133–176; BP diastolic 70–92; PULSE 56–70; RESP 15–20; TEMP 36.2–37.1; O2SAT 95–100
[2023-01-19] MEDS: Lactated Ringers 1,000 ML 999 ML IV (11:19)
[2023-01-19] MEDS: Aprepitant 32 MG/4.4 ML VIAL IVPUSH (11:19)
[2023-01-19 11:26] LABS: Glucose, Whole Blood 115 mg/dL (60-115)
--- NOTE | 2023-01-19 13:48 | P.BOP_ITS ---
Brief Operative Note Date of Service: 01/19/23 Pre-op diagnosis: Morbid obesity with comorbidities (see below) Post-op diagnosis: same Procedure: INITIAL PATIENT BMI ON PRESENTATION AT OUR OFFICE: 49.1 kg/m2 LAST BMI BEFORE SURGERY: 47.3 kg/m2 COMORBIDITIES: sleep apnea, non-insulin dependent diabetes, GERD, asthma, depression, anxiety, headaches, migraines, liver steatosis ?The patient presented to the Weight Management Program with significant obesity that was negatively impacting the patient's comorbidities as listed above.? The program is a phased program with a special focus on preoperative medical weight management to promote substantial weight loss and prepare the patients for the second phase of the program: bariatric surgery. The patient participated in an intensive weekly lifestyle ?intervention and exercise program during which the patient ?has lost between the initial office visit and the last preoperative visit 14.4 lbs, or 5.54% of initial actual body weight. It was deemed appropriate for the patient to now have bariatric surgery. In light of the current Covid-19 pandemic and the well documented strong association of obesity and increased risk of worse outcomes if infected with Covid-19 (REFERENCES: https://pubmed.ncbi.nlm.nih.gov/39448857/ ,? https://pubmed.ncbi.nlm.nih.gov/82078219/ ), any delay in undergoing bariatric surgery may lead to the patient's worsening health condition and increased?risk of more severe Covid-19 disease if infected. In addition a recent?study from [facility] published in [employer] on 09/06/2021 ([email or web address]) found that, among patients with obesity, substantial weight loss achieved with surgery was associated with improved outcomes of COVID-19 infection. The findings suggest that obesity can be a modifiable risk factor for the severity of COVID-19 infection. In addition, the patient met the BMI-criteria for bariatric surgery based on the BMI on initial presentation. The patient should not be penalized for achieving such weight loss because ?it is not sustainable long-term without surgical intervention and it was achieved in preparation for bariatric surgery ?under my direction and based on my published research ([email or web address]).[email or web address] and? https://www.soard.org/article/[email or web address](89)44130-X/pdf ) ?that a 10% preoperative weight loss improves long-term weight loss after surgery and reduces perioperative complications.? Insurance carriers such as [facility] have endorsed my recommendations ?and have included in their policies criteria to include a 10% preoperative weight loss requirement. PROCEDURE: Esophago-gastroscopy, laparoscopic repair of incarcerated diaphragmatic hernia, laparoscopic lysis of adhesions, laparoscopic sleeve gastrectomy and laparoscopic gastropexy INDICATIONS: This is a 47 year-old female who was electively scheduled for laparoscopic, possibly open sleeve gastrectomy. The risks and complications of the procedure were discussed with the patient in advance, particularly the possibility of ; pulmonary embolism; staple line leak; bleeding; GERD; cardiac, pulmonary, or renal complications; as well as long-term problems such as insufficient weight loss, vitamin deficiency, strictures, or ulcers. The patient understood all the risks, and was in agreement to proceed with surgery. DESCRIPTION OF PROCEDURE: After informed consent was obtained from the patient, the patient was given preoperative antibiotics, and was transferred to the operating room. After successful induction of general anesthesia, pneumatic compression devices were placed on both lower extremities. An upper endoscopy was performed next. The oropharynx and esophagus appeared to be within normal limits. There was a diaphragmatic hernia present of moderate size consistent with the findings of the preoperative upper GI. The stomach was entered. Then after all fluid and air were suctioned and the stomach was fully decompressed, the scope was withdrawn and secured in the mid esophagus. The patient was then prepped and draped in the usual sterile manner, and a bdominal access was established at the right upper quadrant with the Valentino technique. A 12 mm blunt port was inserted, and the abdomen was insufflated with CO2 to a pressure of 15 mmHg. Under direct visualization, additional ports were placed, specifically two 5 mm Versi-step ports to the left upper quadrant, and a 5 mm Versi-Step port to the right upper quadrant. 1% lidocaine plain was used to infiltrate all port sites as well as all fascia defects. ? PLEASE REVIEW BEFORE TO INCLUDE THIS SENTENCE: Using the EndoClose suture passer device, I placed a #1 Polysorb tie across the falciform ligament in order to retract it up against the abdominal wall and prevent injury of the ligament with our instruments during the procedure. ? PLEASE REVIEW BEFORE TO INCLUDE THIS SENTENCE: There were adhesions in the abdomen from previous involving the omentum and the anterior abdominal wall. Those were lysed completely with the ultrasonic device. Following that, the patient was placed in a steep reverse Trendelenburg position. An additional 5 mm port was placed to the right flank for the Mediflex retractor that was used to retract the left lobe of the liver. The gastro-esophageal fat pad was opened with the ultrasonic device (Thunderbeat, Olympus) and the anterior esophagus and hiatus were exposed. The angle of His was opened with the ultrasonic device the fundus of the stomach from any diaphragmatic and splenic attachments. I then opened the gastrocolic ligament between the transverse colon and the greater curvature of the stomach with the ultrasonic device to enter the lesser sac and facilitate the ligation of the short gastric vessels. I started at a mid-point along the greater curvature and using the Thunderbeat, all short gastric vessels were divided all the way to the angle of His until the left michael was completely dissected at its entirety. I then divided the gastro-colic ligament distally to a distance of about 3-4 cm proximal to the pylorus. ? PLEASE REVIEW BEFORE TO INCLUDE THIS SENTENCE There were extensive congenital adhesions between the pancreas and posterior gastric wall. Those were lysed completely with the ultrasonic device. Adhesiolysis took approximately 45 min to complete. ? PLEASE REVIEW BEFORE TO INCLUDE THIS PARAGRAPH: There was an obvious significant-sized hiatal hernia. I continued dissecting along the hiatus toward the left michael and the angle of His. I fully mobilized the fat pad that was incarcerated in the hernia. I then continued by dissecting even further into the posterior retro-esophageal space all the way to the angle of His. I continued to mobilize the esophagus into the mediastinum circumferentially. Both vagal nerves were seen and preserved. At that point, I was able to have at least 3 to 5 cm of esophagus into the abdomen.? After I completely mobilized the esophagus from both the left and right michael and I had a good mobilization of the esophagus circumferentially, I closed the hernia defect with ? interrupted #0 Surgidac sutures using the Endo Stitch device, ??? of which was placed posterior and ??? of which anterior to the esophagus. ? The stomach was then divided transversely with one Endo ADAM-45 purple, ?? ADAM-45 orange loads and ??? ADAM-6s0 articulating orange loads using the AEON stapler and loads. Every effort was made that the gastric sleeve had a tubular shape and an even caliber throughout. Once the sleeve resection was completed, the staple line of the gastric sleeve was reinforced with Hemoclips. The resected stomach was retrieved without difficulty from the Valentino port. A gastropexy was then performed in order to prevent postoperative GERD and partial gastric volvulus. Several interrupted 2.0 Surgidac sutures were placed between the sleeve's staple line and the previously divided greater omentum and gastro-colic ligament using the Endo-Stitch device. ?An upper endoscopy was performed. There was no narrowing at the GE junction. The scope was easily advanced all the way to the pylorus which was clearly visualized. There was no narrowing anywhere and the sleeve's caliber was even throughout. The sleeve's staple line was inspected and there was no evidence of ischemia, bleeding or dehiscence. At that point the gastroscope was withdrawn from the patient?s mouth while we were decompressing the bowel and the stomach from any remaining air. I looked into the lesser sac to see how the sleeve was situating and it was situating well. There was no bleeding from the staple line, spleen, or short gastric vessels. The Mediflex retractor was removed, and the undersurface of the liver was inspected and there was no bleeding. The patient was placed in supine position. I closed the fascial defect of the 12 mm port site with a figure of eight #1 Polysorb suture. Then 30cc Ropivacaine plain with 10 mg of Dexamethasone were used to infiltrate the fascial closure as well as all skin incisions. A total of ml Zynrelef was applied in the Valentino wound. At this point, the abdomen was deflated, all ports were removed under direct vision, and no bleeding was noted from any of the port sites. The skin incisions were irrigated with saline and were closed with 4-0 absorbable monofilament sutures. Steri-Strips and OpSites were used to cover all incisions. The patient was extubated and was transferred in stable condition to the recovery room for further care. I was present and performed all brand parts of the procedure. Mr. Zuluaga was the first crusher. There were no residents to assist with this case. Hossein Howe MD, PhD, FACS Surgeon: Vinny Howe MD Anesthesia: GETA, local and other (TAP block and ml Zynrelef) Was an Veterinary Receptionist used for this Procedure?: Yes Veterinary Receptionist: Luis Zuluaga Estimated blood loss (mL): 10 Urine output (mL): 0 (No Bartholomew to record output) Pathology: other (Stomach) Condition: stable Disposition: PACU
--- NOTE | 2023-01-19 13:53 | PM.PNGS ---
Subjective Subjective Date of Service: 01/20/23 Interval history: Feels well. Mild incisional pain. She is tolerating phase 1 bariatric diet Physical Exam Vital Signs: Vital Signs: Last Vital Signs Temp 98.0 F 01/19/23 10:53 Pulse 70 01/19/23 10:53 Resp 16 01/19/23 10:53 BP 133/82 01/19/23 10:53 Pulse Ox 97 01/19/23 10:53 O2 Del Method Room Air 01/19/23 10:53 BMI result Body Mass Index 47.2 GI: Inspection: Yes normal to inspection, Yes incision (clean, dry and intact) and Yes obesity Palpation (GI): Soft to palpation Extrem: Right lower extremity: normal to inspection (no calf tenderness) Left lower extremity: normal to inspection (no calf tenderness) Objective Data Active Medications Albuterol Sulfate (Albuterol Sulfate (0.083%) 2.5 Mg/3 Ml Vial.Neb) 2.5 mg INHALE ONCE PRN PRN Reason: Shortness of Breath/Wheezing Albuterol Sulfate (Albuterol Sulfate (0.083%) 2.5 Mg/3 Ml Vial.Neb) 2.5 mg INHALE ONCE PRN PRN Reason: Wheezing Fentanyl (Fentanyl Citrate/Pf 100 Mcg/2 Ml Vial) 50 mcg IVPUSH Q5M PRN; Protocol PRN Reason: Pain, Severe (Pain Scale 7-10) Fentanyl (Fentanyl Citrate/Pf 100 Mcg/2 Ml Vial) 25 mcg IVPUSH Q5M PRN; Protocol PRN Reason: Pain, Moderate(Pain Scale 4-6) Hydromorphone HCl (Hydromorphone Hcl 0.5 Mg/0.5 Ml Syringe) 0.25 mg IVPUSH Q5M PRN; Protocol PRN Reason: Pain, Severe (Pain Scale 7-10) Lactated Ringer's (Lr) 1,000 mls @ 100 mls/hr IVCONT .Q10H LUCIE Promethazine HCl 6.25 mg/ (Sodium Chloride) 50.25 mls @ 201 mls/hr IV ONCE PRN PRN Reason: Nausea and Vomiting Ondansetron HCl (Ondansetron Hcl 4 Mg/2 Ml Vial) 4 mg IVPUSH ONCE PRN PRN Reason: Nausea and Vomiting Oxycodone HCl (Oxycodone Hcl Immed Release 5 Mg Tablet) 5 mg PO ONCE PRN PRN Reason: Pain, Severe (Pain Scale 7-10) Labs 01/09/23 09:30 01/09/23 09:30 Labs: Laboratory Results - last 24 hr 01/19/23 11:09 POC Glucose 115 Procedures Date of Service Date of Service: 01/20/23 Progress Note: A&P Assessment and plan (1) S/P laparoscopic sleeve gastrectomy: Status: Acute Assessment and Plan: s/p laparoscopic sleeve gastrectomy, lysis of adhesions,and gastropexy Doing well Will check am labs and if OK the patient will be discharged home (2) Morbid obesity: Status: Acute (3) Asthma: Status: Acute (4) Eczema: Status: Acute (5) DJD (degenerative joint disease): Status: Acute (6) Non-insulin dependent type 2 diabetes mellitus: Status: Acute (7) GERD (gastroesophageal reflux disease): Status: Acute (8) Depression: Status: Acute (9) Anxiety: Status: Acute (10) Sleep apnea with use of continuous positive airway pressure (CPAP): Status: Acute (11) Migraines: Status: Acute (12) Hepatomegaly: Status: Acute (13) Steatosis, liver: Status: Acute Time Spent With Patient Time: Total time managing care of this patient today ____ minutes. Quality Stroke Does the patient have a stroke diagnosis?: No VTE Prior VTE?: No VTE Risk Level:: Surgical - moderate VTE Device Contraindication: N/A - Device Ordered VTE Drug Contraindication: Treatment Not Indicated
--- NOTE | 2023-01-19 16:54 | P.DS_ITS ---
DS: Providers Provider Date of Service: 01/20/23 Date of admission: 01/19/23 10:30 Primary care physician: Maria Elena Miller MD DS: Summary Hospital Course Hospital Course: ADMITTING DIAGNOSIS: morbid obesity, anxiety, depression, GERD, DM, HLD ? DISCHARGE DIAGNOSIS: same, s/p laparoscopic sleeve gastrectomy ? PAST SURGICAL HISTORY: tubal ligation, laparoscopic cholecystectomy ? PROCEDURE: upper endoscopy, laparoscopic sleeve gastrectomy ? DISCHARGE SUMMARY: ? History of Present Illness: ? The patient is a?47 year-old woman with a BMI of?49.1 kg/m2 and associated co- morbidities as described above. The patient had extensive work-up,lost?10.8 lbs preoperatively and was electively scheduled for laparoscopic, possible open sleeve gastrectomy and gastropexy. Risks and complications of the surgery were discussed with the patient in advance, particularly the possibility of , pulmonary embolism, anastomotic leak, bleeding, bowel injury, GERD, cardiac, renal or pulmonary complications. The patient understood all the risks and was in agreement with the surgical plan. ? Hospital Course: ? The patient underwent an uneventful laparoscopic sleeve gastrectomy with gastropexy on the day of admission. Postoperatively, the patient was transferred to the surgical floor. The patient received IV Acetaminophen and IV dilaudid for pain control. Patient was started on bariatric phase 1 diet POD #0. On postoperative day one, the patient was feeling well without nausea, vomiting, fevers, or tachycardia. The patient had some mild incisional pain and the abdomen was soft. ? On the morning of postoperative day one, the patient was continued on 1 ounce of water or ice every half hour. During the day, the patient did fairly well, having some incisional pain, but able to ambulate adequately and to tolerate liquids well. ? Since the patient is doing well, we decided that the patient was ready to be discharged. The patient was given instructions to follow-up with me next week and to call my office for any fever over 101, persistent abdominal pain, nausea, vomiting, GERD, symptoms of DVT such as calf tenderness, or leg swelling, or pulmonary embolism such as chest pain or shortness of breath. The patient was also instructed to drink 40-60 ounces of liquids per day using the 1-ounce cups. The patient had been given prescriptions for Tylenol for pain, Zofran prn for nausea, and pantoprazole and carafate previously. The patient was encouraged to ambulate and use the incentive spirometer. The patient was allowed to shower, but no baths, and encouraged to stay active at home. All of these instructions were given to the patient personally. All questions were answered and the patient understood all instructions, the instructions were also given to the patient in print. Time Spent with Patient Time attestation: Total time managing care of this patient today ____ minutes. Discharge coordination time: Less than 30 minutes Quality: Safe Use of Opioids Does Pt have an Active Cancer Diagnosis on the Problem List?: No Quality: Stroke Does the patient have a stroke diagnosis?: No Physical Exam Vital Signs: Vital Signs: Last Vital Signs Temp 98.0 F 01/19/23 16:45 Pulse 66 01/19/23 16:50 Resp 20 01/19/23 16:50 BP 152/81 H 01/19/23 16:50 Pulse Ox 98 01/19/23 16:50 O2 Del Method Simple Mask 01/19/23 16:50 O2 Flow Rate 6 01/19/23 16:50 BMI result Body Mass Index 47.2 DS: Data Data Completed and Pending Pending studies at discharge: Pending at discharge 01/19/23 16:09 Surgical [PTH] Routine Labs on day of discharge: Laboratory Results - last 24 hr 01/19/23 11:09 POC Glucose 115 Discharge Plan Discharge Anticipated Discharge Date/Time: 01/20/23 10:00 Patient Disposition: Home, Self-Care Discharge Diagnosis: s/p laparoscopic sleeve gastrectomy Referrals: Maria Elena Miller MD [Primary Care Provider] - 1 Week Discharge Medications: Continued albuterol sulfate 2.5 mg /3 mL (0.083 %) solution for nebulization 2.5 mg inhalation QID PRN (Reason: shortness of breath or wheezing) Qty: 75 0RF buspirone 5 mg tablet 5 mg PO BID sucralfate [Carafate] 100 mg/mL suspension 10 ml PO BID albuterol sulfate [ProAir HFA] 90 mcg/actuation HFA aerosol inhaler 1 inh inhalation QID PRN (Reason: shortness of breath or wheezing) fluticasone propion-salmeterol 230-21 mcg/actuation HFA aerosol inhaler 2 inh INHALATION BID (DME) blood sugar diagnostic Kit See Rx Instructions .Route Rx Instructions: As directed sumatriptan succinate 25 mg tablet 25 mg PO Q2-4H PRN (Reason: Headache) Rx Instructions: do not exceed 8 doses per 24 hrs cetirizine 10 mg tablet 10 mg PO DAILY PRN (Reason: Allergy Symptoms) montelukast 10 mg tablet 10 mg PO DAILY (DME) blood sugar diagnostic Strip See Rx Instructions .Route Rx Instructions: As directed atorvastatin 10 mg tablet 10 mg PO DAILY (DME) blood pressure test kit-large [BuyosphereTouch BP Monitor] Kit See Rx Instructions .Route Qty: 1 0RF Rx Instructions: As directed pantoprazole 40 mg tablet,delayed release (DR/EC) 40 mg PO DAILY Qty: 30 2RF Held Dupixent Pen 300 mg/2 mL pen injector 300 mg subcut Q2W Hold Instructions: until discussed with Dr Howe Discontinued phentermine 15 mg capsule 15 mg PO DAILY Qty: 14 0RF Rx Instructions: must administer 2 hours after breakfast cholecalciferol (vitamin D3) [D3-5000] 125 mcg (5,000 unit) capsule 125 mcg PO DAILY ibuprofen [IBU] 800 mg tablet 800 mg PO Q8H colestipol [Colestid] 1 gram tablet 2 g PO BID metoclopramide HCl [Reglan] 10 mg tablet 10 mg PO Q6H PRN (Reason: Nausea) metformin 1,000 mg tablet 1,000 mg PO DAILY ondansetron 4 mg tablet,disintegrating 4 mg PO Q6H PRN (Reason: nausea and vomiting) Qty: 30 0RF Discharge Orders: Discharge Order (Routine); Ordered 01/20/23 Ordered By: Vinny Howe Activity on Discharge: No heavy lifting Stand Alone Forms: Patient Portal Discharge page Care Plan Goals: weight loss Health Concerns: morbid obesity Plan of Treatment: No tub baths, sex or returning to work until discussed at first post op appointment. No exercise, alcohol, tobacco or illegal drug use. Continue to use incentive spirometer hourly while awake. Walk in home for 5- 10 minutes every 2 hours during the first week. Follow all instructions in the bariatric handbook and call with any questions.Discharge Instructions 1. Please call your doctor or come back to the emergency room should any new symptoms arise. 2. You will receive a courtesy call from [facility] 24-48 hours after discharge. 3. Activity: abstain from alcohol, practice limited stair climbing, no bending, no driving, no exercise, no illicit substances, no lifting, no sex, no tub bath, no work. 4. Diet: continue as discussed with Dr. Howe. 5. Dressing Change/Wound Care: Your incision is covered by clear bandages and guaze underneath. If the area is tender, you may apply an ice pack for short intervals (no more than 20 minutes on, followed by at least 20 minutes off). Do not apply heat. Do not use creams, lotions, or topical antibiotics unless instructed to do so by your surgeon. These can cause infection or allergic reaction. 6. Call your doctor if: - Your temperature exceeds 101.5 F - You experience excessive pain or swelling - You have an unexpected reaction to medication - You have excessive bleeding - You experience continued vomiting/nausea - Your incision begins to separate - Your incision shows signs of infection such as increased redness, swelling, excessive pain, heat, or drainage (light blood or clear fluid is normal) 7. General instructions: No lifting greater than 5 lbs for the next 4 weeks[address] driving within 24 hours of taking narcotic pain medications. If you do not move your bowels in the next 2 days, please take milk of magnesia over the counter. Please follow the post op diet and do not advance your diet until you are seen in the office in about 2 weeks. Please walk around your home every hour or two to prevent blood clots from forming in your legs. You do not need to wake from sleeping to walk. Please sleep in a bed or couch to prevent kinking at the hips and knees. Please take your incentive spirometer (your lung associate professor of english) home with you and use it for the next few days to prevent pneumonias. You may shower, no hot tubs, baths or swimming pools. Please call the office with any questions or concerns such as increasing abdominal pain, fever, chills, shortness of breath, chest pain, leg pain or swelling, or redness or drainage from your incisions. Please stay on stage 3 diet which includes sugar free clear liquids such as ice pops and jello and broth and crystal light. Avoid all carbonation. Please drink 3 protein shakes with at least 25-30 grams of protein daily or 3 of the Celebrate 4:1 shakes which can be purchased in our office. The Celebrate shakes have all of the bariatric vitamins you need if you consume these shakes. If you are drinking other protein shakes, you will need to purchase the Celebrate multivitamins and calcium that we provide in the office (they will provide all the vitamins you need). Please make sure you are consuming at least 40-60 ounces of water in addition to your 3 protein shakes daily. Do not hesitate to contact the office with any questions at . The patient's medical history has been reviewed and they are considered low risk for post op DVT and therefore DVT prophylaxis is not considered necessary. Travel after surgery was reviewed. The patient has not disclosed any travel plans during the first 30 days after surgery and they have been advised that wit hin the first 30 days after surgery any bus, plane, train or car travel over 2 hours in duration is contraindicated due to the possibility of developing blood clots from immobility. Any travel, needs to include periods of ambulation of 10 minutes in duration every 2 hours.? The patient was instructed to discuss any plans for travel during this period with their bariatric surgeon. Assessment: stable s/p laparoscopic sleeve gastrectomy
[2023-01-19 17:04] LABS: Hematocrit 37.1 % (37.0-47.0); Hemoglobin 12.2 g/dl (12.0-16.0)
[2023-01-19] MEDS: ondansetron HCL 4 MG/2 ML VIAL IVPUSH (17:04)
[2023-01-19 17:33] LABS: Anion Gap 12 (12-20); Blood Urea Nitrogen 8 mg/dL (9-16); Calcium 8.6 mg/dL (8.4-10.2); Carbon Dioxide 23 mmol/L (22-29); Chloride 106 mmol/L (96-108); Creatinine Clr Calc Pharmacy 121.3; Estimated Glomerular Filt Rate > 60; Glucose Random 136 mg/dL (60-115); Sodium 137 mmol/L (135-145)
[2023-01-19] MEDS: Lactated Ringers 1,000 ML 100 ML IVCONT (18:05)
[2023-01-19] MEDS: Acetaminophen 1,000 MG/100 ML PIGGYBACK 400 MG IV (18:23)
--- NOTE | 2023-01-19 18:48 | P.BOP_ITS ---
Brief Operative Note Date of Service: 01/19/23 Pre-op diagnosis: Morbid obesity with comorbidities (see below) Post-op diagnosis: same (& severe hepatomegaly) Procedure: INITIAL PATIENT BMI ON PRESENTATION AT OUR OFFICE: 49.1 kg/m2 LAST BMI BEFORE SURGERY: 47 kg/m2 COMORBIDITIES: sleep apnea, non-insulin dependent diabetes, GERD, asthma, depression, anxiety, headaches, migraines, liver steatosis, eczema ?The patient presented to the Weight Management Program with significant obesity that was negatively impacting the patient's comorbidities as listed above.? The program is a phased program with a special focus on preoperative medical weight management to promote substantial weight loss and prepare the patients for the second phase of the program: bariatric surgery. The patient participated in an intensive weekly lifestyle ?intervention and exercise program during which the patient ?has lost between the initial office visit and the last preoperative visit 14.9lbs, or 5.54% of initial actual body weight. It was deemed appropriate for the patient to now have bariatric surgery. In light of the current Covid-19 pandemic and the well documented strong association of obesity and increased risk of worse outcomes if infected with Covid-19 (REFERENCES: https://pubmed.ncbi.nlm.nih.gov/78806363/ ,? https://pubmed.ncbi.nlm.nih.gov/07689316/ ), any delay in undergoing bariatric surgery may lead to the patient's worsening health condition and increased?risk of more severe Covid-19 disease if infected. In addition a recent?study from [facility] published in [employer] on 09/06/2021 ([email or web address]) found that, among patients with obesity, substantial weight loss achieved with surgery was associated with improved outcomes of COVID-19 infection. The findings suggest that obesity can be a modifiable risk factor for the severity of COVID-19 infection. In addition, the patient met the BMI-criteria for bariatric surgery based on the BMI on initial presentation. The patient should not be penalized for achieving such weight loss because ?it is not sustainable long-term without surgical intervention and it was achieved in preparation for bariatric surgery ?under my direction and based on my published research ([email or web address] and? [email or web address] ) ?that a 10% preoperative weight loss improves long-term weight loss after surgery and reduces perioperative complications.? Insurance carriers such as [employer] [facility] have endorsed my recommendations ?and have included in their policies criteria to include a 10% preoperative weight loss requirement. PROCEDURE: Esophago-gastroscopy, laparoscopic lysis of adhesions, laparoscopic sleeve gastrectomy and laparoscopic gastropexy INDICATIONS: This is a 47 year-old female who was electively scheduled for laparoscopic, possibly open sleeve gastrectomy. The risks and complications of the procedure were discussed with the patient in advance, particularly the possibility of ; pulmonary embolism; staple line leak; bleeding; GERD; cardiac, pulmonary, or renal complications; as well as long-term problems such as insufficient weight loss, vitamin deficiency, strictures, or ulcers. The patient understood all the risks, and was in agreement to proceed with surgery. DESCRIPTION OF PROCEDURE: After informed consent was obtained from the patient, the patient was given preoperative antibiotics, and was transferred to the operating room. After successful induction of general anesthesia, pneumatic compression devices were placed on both lower extremities. An upper endoscopy was performed next. The oropharynx and esophagus appeared to be within normal limits. There was no diaphragmatic hernia present consistent with the findings of the preoperative upper GI. The stomach was entered. Then after all fluid and air were suctioned and the stomach was fully decompressed, the scope was withdrawn and secured in the mid esophagus. The patient was then prepped and draped in the usual sterile manner, and abdominal access was established at the right upper quadrant with the Valentino technique. A 12 mm blunt port was inserted, and the abdomen was insufflated with CO2 to a pressure of 15 mmHg. Under direct visualization, additional ports were placed, specifically two 5 mm Versi-step ports to the left upper quadrant, and a 5 mm Versi-Step port to the right upper quadrant. 1% lidocaine plain was used to infiltrate all port sites as well as all fascia defects. Following that, the patient was placed in a steep reverse Trendelenburg position. An additional 5 mm port was placed to the right flank for the Mediflex retractor that was used to retract the left lobe of the liver. The patient had severe hepatomegaly with a very engorged and thickened fatty liver which made the operation very difficult and prolonged the operative time for another 1 h our.. The gastro-esophageal fat pad was opened with the ultrasonic device (Thunderbeat, Olympus) and the anterior esophagus and hiatus were exposed. The angle of His was opened with the ultrasonic device the fundus of the stomach from any diaphragmatic and splenic attachments. I then opened the gastrocolic ligament between the transverse colon and the greater curvature of the stomach with the ultrasonic device to enter the lesser sac and facilitate the ligation of the short gastric vessels. I started at a mid-point along the greater curvature and using the Thunderbeat, all short gastric vessels were divided all the way to the angle of His until the left michael was completely dissected at its entirety. I then divided the gastro-colic ligament distally to a distance of about 3-4 cm proximal to the pylorus. There were extensive congenital adhesions between the pancreas and posterior gastric wall. Those were lysed completely with the ultrasonic device. Adhesiolysis took approximately 45 min to complete. The stomach was then divided transversely with one Endo ADAM-45 purple, and four ADAM-60 articulating purple loads using the SIGNIA stapler and loads. Every effort was made that the gastric sleeve had a tubular shape and an even caliber throughout. Once the sleeve resection was completed, the staple line of the gastric sleeve was reinforced with Hemoclips. The resected stomach was retrieved without difficulty from the Valentino port. A gastropexy was then performed in order to prevent postoperative GERD and partial gastric volvulus. Several interrupted 2.0 Surgidac sutures were placed between the sleeve's staple line and the previously divided greater omentum and gastro-colic ligament using the Endo-Stitch device. ?An upper endoscopy was performed. There was no narrowing at the GE junction. The scope was easily advanced all the way to the pylorus which was clearly visualized. There was no narrowing anywhere and the sleeve's caliber was even throughout. The sleeve's staple line was inspected and there was no evidence of ischemia, bleeding or dehiscence. At that point the gastroscope was withdrawn from the patient?s mouth while we were decompressing the bowel and the stomach from any remaining air. I looked into the lesser sac to see how the sleeve was situating and it was situating well. There was no bleeding from the staple line, spleen, or short gas tric vessels. The Mediflex retractor was removed, and the undersurface of the liver was inspected and there was no bleeding. The patient was placed in supine position. I closed the fascial defect of the 12 mm port site with a figure of eight #1 Polysorb suture. Then 30cc Ropivacaine plain with 10 mg of Dexamethasone were used to infiltrate the fascial closure as well as all skin incisions. A total of 7ml Zynrlef was applied in the Valentino wound. At this point, the abdomen was deflated, all ports were removed under direct vision, and no bleeding was noted from any of the port sites. The skin incisions were irrigated with saline and were closed with 4-0 absorbable monofilament sutures. Steri-Strips and OpSites were used to cover all incisions. The patient was extubated and was transferred in stable condition to the recovery room for further care. I was present and performed all brand parts of the procedure. Mr. Zuluaga was the audiology assistant. There were no residents to assist with this case. Hossein Howe MD, PhD, FACS Surgeon: Vinny Howe MD Anesthesia: GETA, local and other (TAP block and 7ml Zynrelef) Was an Ice Platform Supervisor used for this Procedure?: Yes Ice Platform Supervisor: Luis Zuluaga Estimated blood loss (mL): 10 IV fluids (mL): 2,000 Urine output (mL): 0 (No Bartholomew to record output) Pathology: other (Stomach) Condition: stable Disposition: PACU
[2023-01-19] MEDS: Metoclopramide HCl 10 MG/2 ML VIAL IVPUSH (19:23)
[2023-01-19] MEDS: 0.9 % Sodium Chloride Flush 3 ML SYRINGE IVFLUSH ×2 (19:23→21:09)
[2023-01-19] MEDS: ceFAZolin Sodium/Dextrose,Iso 2 GM/50 ML PIGGYBACK IV (19:41)
[2023-01-19] MEDS: busPIRone HCl 5 MG TABLET PO (21:09)
[2023-01-19] MEDS: Famotidine/PF 20 MG/2 ML VIAL IVPUSH (21:09)
[2023-01-20] MEDS: Acetaminophen 1,000 MG/100 ML PIGGYBACK 400 MG IV (00:57)
[2023-01-20 03:24] VITALS: BP 146/65; PULSE 54; RESP 18; TEMP 36.3; O2SAT 94
[2023-01-20] MEDS: Lactated Ringers 1,000 ML 100 ML IVCONT (03:26)
[2023-01-20 06:12] LABS: MANUAL DIFF FLAG NO
[2023-01-20 06:15] LABS: Basophils Percent Auto 0.1 % (0-2); Hematocrit 40.6 % (37.0-47.0); Hemoglobin 12.8 g/dl (12.0-16.0); Imm Gran Abs Auto 0.04 X10*3/uL (0.00-0.03); Imm Gran Pct Auto 0.4 % (0.0-0.4); Lymphocytes Absolute Auto 1.3 X10*3/uL (1.2-4.9); Lymphocytes Percent Auto 13.9 % (20-40); Mean Corpuscular HGB Conc 31.5 g/dl (31.0-35.0); Mean Corpuscular Hemoglobin 27.2 pg (27.0-33.0); Mean Corpuscular Volume 86.2 fL (80.0-98.0); Mean Platelet Volume 11.2 fL (9.4-12.3); Monocytes Absolute Auto 0.5 X10*3/uL (0.1-1.2); Monocytes Percent Auto 5.3 % (2-11); Neutrophils Absolute Auto 7.7 x10*3/uL (2.0-8.3); Neutrophils Percent Auto 80.3 % (45-73); Platelet Count 227 X10*3/uL (160-400); Red Blood Count 4.71 X10*6/uL (4.20-5.50); Red Cell Distribution Width 14.1 % (11.0-16.0); White Blood Count 9.6 X10*3/uL (4.8-10.8)
[2023-01-20 06:35] LABS: Anion Gap 15 (12-20); Blood Urea Nitrogen 6 mg/dL (9-16); Calcium 9.1 mg/dL (8.4-10.2); Carbon Dioxide 20 mmol/L (22-29); Chloride 106 mmol/L (96-108); Creatinine Clr Calc Pharmacy 128.9; Estimated Glomerular Filt Rate > 60; Glucose Random 133 mg/dL (60-115); Potassium 4.4 mmol/L (3.3-5.1); Sodium 137 mmol/L (135-145)
[2023-01-20 08:00] VITALS: BP 128/68; PULSE 60; RESP 16; TEMP 36.4; O2SAT 97
[2023-01-20] MEDS: busPIRone HCl 5 MG TABLET PO (08:47)
[2023-01-20] MEDS: Famotidine/PF 20 MG/2 ML VIAL IVPUSH (08:47)
--- NOTE | 2023-01-20 09:22 | MHC.CM.PN ---
Female 47 S/P Gastric Sleeve She is discharged today to home self care. She has arranged for a family member to provide transportation home.
[2023-01-20 11:09] LABS: Glucose, Whole Blood 119 mg/dL (60-115)
== END 2023-01-20 11:31 | disposition home or self-care (01) | DRG 403 ==
LOC: HO.SSSA 16:54 → HO.S3 17:35
PROVIDERS: Physician Assistant Surgical; Admitting Provider Surgery; PCP Internal Medicine; Visit Provider Surgery
PROC: 0DB64Z3 Excision of Stomach, Percutaneous Endoscopic Approach, Vertical (ICD-10-PCS; CPT 43845; principal; 2023-01-19 12:50)
DX: E66.01 Morbid (severe) obesity due to excess calories (principal); K76.0 Fatty (change of) liver, not elsewhere classified; Q43.3 Congenital malformations of intestinal fixation; F32.A Depression, unspecified; J45.909 Unspecified asthma, uncomplicated; K21.9 Gastro-esophageal reflux disease without esophagitis; M19.90 Unspecified osteoarthritis, unspecified site; F41.9 Anxiety disorder, unspecified; L30.9 Dermatitis, unspecified; Z68.42 Body mass index [BMI] 45.0-49.9, adult; G47.33 Obstructive sleep apnea (adult) (pediatric); G43.109 Migraine with aura, not intractable, without status migrainosus; Z20.822 Contact with and (suspected) exposure to COVID-19; Z87.891 Personal history of nicotine dependence; Z79.51 Long term (current) use of inhaled steroids; Z79.899 Other long term (current) drug therapy
CPT/HCPCS: 36415; 80048; 80053; 80061; 82947; 83036; 83525; 84443; 85014; 85018; 85025; 85610; 85730; 86140; 86850; 86900; 86901; 87635; 88305; 88307; 88342; A4649; C9088; C9145; J0131; J0690; J1100; J1170; J2250; J2405; J2765; J2795; J3010

== ENCOUNTER → 2023-01-24 10:30 | Outpatient (BNVA) | payer OTHER, SELFPAY | PROVIDERS: PCP Internal Medicine; Visit Provider Physician Assistant Surgical | DX: Z48.815 Encounter for surgical aftercare following surgery on the digestive system (principal); Z98.84 Bariatric surgery status | CPT/HCPCS: 99212 ==

== ENCOUNTER → 2023-01-30 09:22 | Outpatient (BNVA) | payer OTHER, SELFPAY | PROVIDERS: PCP Internal Medicine; Visit Provider Dietitian, Registered | DX: E66.01 Morbid (severe) obesity due to excess calories (principal); Z68.41 Body mass index [BMI] 40.0-44.9, adult; E11.9 Type 2 diabetes mellitus without complications; Z98.84 Bariatric surgery status; Z71.3 Dietary counseling and surveillance | CPT/HCPCS: 97803 ==

== ENCOUNTER → 2023-02-17 13:36 | Outpatient (BNVA) | payer OTHER, SELFPAY | PROVIDERS: PCP Internal Medicine; Visit Provider Physician Assistant Surgical | DX: E66.01 Morbid (severe) obesity due to excess calories (principal); Z68.41 Body mass index [BMI] 40.0-44.9, adult; Z90.3 Acquired absence of stomach [part of] | CPT/HCPCS: 99212 ==

== ENCOUNTER 2023-03-16 05:54 | Emergency (ER) | payer OTHER, SELFPAY ==
[2023-03-16 05:59] VITALS: BP 133/67; PULSE 62; RESP 18; TEMP 36.6; O2SAT 100; BMI 41.4
--- NOTE | 2023-03-16 06:20 | PC.NURSE ---
pt to ED for bilateral upper leg numbness with stabbing pain. Pt states she believes that this numbness of the upper legs maybe due to having surgery in January (gastric sleeve) Pt states the numbness with the stabbing pain is worst when standing long periods of time. Pt denies any other issues. pt does have a history of DM.
[2023-03-16 06:24] VITALS: BP 120/74; PULSE 79; RESP 16; TEMP 37; O2SAT 100
--- NOTE | 2023-03-16 06:34 | ED.GENADULT ---
HPI - General Adult General Chief complaint: Extremity Injury, Lower Stated complaint: leg pain Time Seen by Provider: 03/16/23 06:32 Source: patient Mode of arrival: ambulatory Limitations: no limitations History of Present Illness HPI narrative: Patient is a 47 year old assigned female at with a history of a gastric sleeve, DM, asthma, and anxiety presenting to the emergency department today with bilateral upper leg pain. Patient states that since January 2023 she has had bilateral thigh pain that seems to radiate from her knees and is much worse when she works longer hours on her feet at [employer]. Patient denies any dizziness, lightheadedness, abdominal pain, nausea, vomiting, fever, chills, blurry vision, double vision, loss of vision, chest pain, difficulty breathing, shortness of breath, back pain, night sweats, pain with urination, increased urinary frequency, increased urinary urgency, blood in her urine or stool, syncope or a near syncopal episode, recent trauma or falls, bowel incontinence, bladder incontinence, bowel retention, bladder retention, or any other complaints at this time. Onset (ago): month(s) (2) Location: left, right and lower extremity Severity: mild Severity scale (1-10): 4 Quality: aching and dull Pain Consistency: intermittent Relieving factors: none Exacerbating factors: other (long periods on her feet) Associated symptoms: denies other symptoms Treatments prior to arrival: none Related Data Home Medications Medication Instructions Recorded Confirmed blood sugar diagnostic 08/16/22 02/17/23 blood sugar diagnostic 08/16/22 02/17/23 cetirizine 10 mg tablet 10 mg PO DAILY PRN Allergy Symptoms 08/16/22 02/17/23 dupilumab 300 mg/2 mL subcutaneous 300 mg subcut Q2W 08/16/22 02/17/23 pen injector ([employer]) montelukast 10 mg tablet 10 mg PO DAILY 08/16/22 02/17/23 sumatriptan succinate 25 mg tablet 25 mg PO Q2-4H PRN Headache 08/16/22 02/17/23 atorvastatin 10 mg tablet 10 mg PO DAILY 11/30/22 02/17/23 buspirone 5 mg tablet 5 mg PO BID 01/12/23 02/17/23 albuterol sulfate 90 mcg/actuation 1 inh inhalation QID PRN shortness 01/19/23 02/17/23 aerosol inhaler (ProAir HFA) of breath or wheezing fluticasone propionate 230 2 inh inhalation BID 01/19/23 02/17/23 mcg-salmeterol 21 mcg/actuation HFA inhaler sucralfate 100 mg/mL oral 10 ml PO BID 01/19/23 02/17/23 suspension (Carafate) Previous Rx's Medication Instructions Recorded albuterol sulfate 2.5 mg/3 mL 2.5 mg (3 mL) inhalation QID PRN 06/26/21 (0.083 %) solution for nebulization shortness of breath or wheezing #75 mL blood pressure test kit-large #1 ea 10/17/22 ([employer] Blood Pressure Monitor kit) pantoprazole 40 mg tablet,delayed 40 mg PO DAILY 90 days #90 tabs 02/07/23 release Allergies Allergy/AdvReac Type Severity Reaction Status Date / Time Seasonal Allergies Allergy Unknown itching Uncoded 01/19/23 10:43 Review of Systems Constitutional: Constitutional: Reports no additional constitutional complaints, Denies chills, Denies fever(s) and Denies night sweats Eyes: Eyes: Reports no additional eye complaints, Denies blurry vision, Denies change in vision, Denies diplopia, Denies eye discharge, Denies loss of vision and Denies eye pain ENT: Denies dizziness Cardiovascular: Cardiovascular: Reports no additional cardiovascular complaints, Denies chest pain, Denies lightheadedness, Denies Loss of Consciousness and Denies dyspnea Respiratory: Respiratory: Reports no additional respiratory complaints and Denies dyspnea Gastrointestinal: Gastrointestinal: Reports no additional gastrointestinal complaints, Denies abdominal pain, Denies melena, Denies hematochezia, Denies change in bowel habits and Denies change in stool character Genitourinary: Genitourinary: Denies hematuria, Denies urinary frequency, Denies dysuria, Denies urinary incontinence, Denies urinary hesitancy and Denies urinary urgency Musculoskeletal: Musculoskeletal: Reports no additional musculoskeletal complaints, Denies numbness and Denies tingling Comments: upper leg pain Neurologic: Denies dizziness, Denies loss of vision, Denies numbness and Denies tingling Psychiatric: Psychiatric: Reports no additional psychiatric complaints Endocrine: Endocrine: Reports no additional endocrine complaints Hematologic/Lymphatic: Hematologic/Lymphatic: Reports no additional hematologic/lymphatic complaints Allergic/Immunologic: Allergic/Immunologic: Reports no additional allergic/immunologic complaints PMFSH Past Medical History Attestation statement: The following information was validated with the patient. Source: old records reviewed and nursing notes reviewed Medical History Anxiety Asthma Depression DJD (degenerative joint disease) Eczema GERD (gastroesophageal reflux disease) Hx of menorrhagia Migraines Morbid obesity Non-insulin dependent type 2 diabetes mellitus Surgical History History of tubal ligation Hx of carpal tunnel repair Hx of cholecystectomy Family History Family History Mother Diabetes Cancer Father Hypertension Diabetes Emphysema lung Heart disease Sister Asthma Heart disease Sister No problems noted. Son Asthma Son No problems noted. Daughter No problems noted. Social History Social History Household Members: Family Housing: Apartment Are you a primary clinical care coordinator to a significant other at home: No Do you presently have visiting nurse or other home services: No Alcohol intake: never Patient Tobacco Use Status: Former Tobacco user Quit Date: 2016 Smoked in Last 30 Days: No Use of substances other than those prescribed or required for medical reasons: No Any prior treatment program specific to substance use: No Advance Directives: No Advance Directives Information Provided: No Patient : No service: No Current occupational status: unemployed Physical Exam ED Vital Signs: Vital Signs - 24 hr 03/16/23 05:59 03/16/23 06:24 Temperature 98 F 98.6 F Pulse Rate 62 79 Respiratory Rate 18 16 Blood Pressure 133/67 120/74 Pulse Oximetry 100 100 Oxygen Delivery Method Room Air Room Air BMI result Body Mass Index 41.4 Const General: cooperative, no acute distress, alert and awake Nutritional Appearance: well nourished Orientation/consciousness: patient oriented x3 Limitations: no limitations HENMT Head: Yes normal to inspection and Yes atraumatic Ears: hearing grossly normal bilaterally and external ears normal General nose exam: Normal external nose present, no nasal discharge noted and no epistaxis Face and sinus: Yes normal facial exam, No abrasion and No laceration Mouth: Normal oral and palatal mucosa present, no drooling and no muffled voice Eyes General: appearance normal, both eyes and all related structures Periorbital: periorbital findings normal Eyelids: Yes eyelids normal Conjunctivae: conjunctivae normal Pupils: Equal, round and reactive pupils present EOM: EOMs intact bilaterally Neck Neck: Yes normal visual inspection, Yes full ROM and Yes no lymphadenopathy Chest Chest palpation & inspection: normal inspection of the chest Resp Effort & Inspection: normal respiratory effort and able to speak in complete sentences GI Inspection: Yes normal to inspection Neuro General: patient oriented x3 and moves all extremities Cranial nerves: Yes Equal, round and reactive pupils present Cognition (Neuro): normal cognition Motor exam (neuro): 5/5 motor strength present throughout Sensory Exam: Normal double simultaneous stimulation for sensation Coordination: [id number] test normal Extrem General: Yes normal to inspection, Yes full ROM and Yes capillary refill normal Psych Appearance: grossly normal Mental Status: mental status grossly normal Affect: normal affect Attitude: cooperative Thought process: Normal thought process present Thought content: Normal thought content present Insight: Good insight present (Psych) Medical Decision Making Medical Decision Making MDM Narrative: Patient is a 47 year old assigned female at with a history of a gastric sleeve, DM, asthma, and anxiety presenting to the emergency department today with bilateral upper leg pain. Patient's physical exam was unremarkable. I explained my physical exam findings to the patient. I answered all questions asked by the patient. Patient's presentation is most consistent with osteoarthritis vs. patellofemoral syndrome. Given the patient's history of gastric sleeve, it is not advised to give NSAIDs or oral steroids. I explained this to the patient. I stressed the importance of the patient taking her medication as prescribed. I stressed the importance of the patient following up with her primary care provider and an orthopedic provider. I stressed the importance of the patient returning to the emergency department immediately if her symptoms were to worsen or if she were to develop any dizziness, shortness of breath, difficulty breathing, chest pain, blurry vision, loss of vision, nausea, vomiting, abdominal pain, fever, chills, back pain, or any other complaints. Patient verbalized agreement and understanding with this treatment plan and discharge. Differential Diagnosis Differential Diagnoses: The differential diagnosis associated with the presentation includes Osteoarthritis Knee pain Internal knee injury Patellofemoral syndrome External Record Review External record reviewed: Other (reviewed previous ED visits.) Tests considered The following testing was considered but not selected: X-ray was considered however, given the patient's physical exam findings and lack of recent traumas or falls, I determined it was unnecessary. Prescription Management I considered prescription management with: Pain Medication (Patient unable to have NSAIDs or oral steroids due to her hx of gastric sleeve.) Chronic Conditions Patient?s care impacted by: Diabetes Discharge Plan Discharge Clinical Impression: Osteoarthritis Patient Disposition: Home, Self-Care Instructions: Osteoarthritis (DC) Additional Instructions: Follow up with your primary care provider and an orthopedic provider. Return to the emergency department immediately if your symptoms worsen or if you develop any dizziness, shortness of breath, difficulty breathing, chest pain, blurry vision, loss of vision, nausea, vomiting, abdominal pain, fever, chills, back pain, or any other complaints. Prescriptions: No Action pantoprazole 40 mg tablet,delayed release (DR/EC) 40 mg PO DAILY 90 Days Qty: 90 0RF albuterol sulfate 2.5 mg /3 mL (0.083 %) solution for nebulization 2.5 mg inhalation QID PRN (Reason: shortness of breath or wheezing) Qty: 75 0RF buspirone 5 mg tablet 5 mg PO BID sucralfate [Carafate] 100 mg/mL suspension 10 ml PO BID albuterol sulfate [ProAir HFA] 90 mcg/actuation HFA aerosol inhaler 1 inh inhalation QID PRN (Reason: shortness of breath or wheezing) fluticasone propion-salmeterol 230-21 mcg/actuation HFA aerosol inhaler 2 inh INHALATION BID (DME) blood sugar diagnostic Kit See Rx Instructions .Route Rx Instructions: As directed sumatriptan succinate 25 mg tablet 25 mg PO Q2-4H PRN (Reason: Headache) Rx Instructions: do not exceed 8 doses per 24 hrs cetirizine 10 mg tablet 10 mg PO DAILY PRN (Reason: Allergy Symptoms) montelukast 10 mg tablet 10 mg PO DAILY (DME) blood sugar diagnostic Strip See Rx Instructions .Route Rx Instructions: As directed Dupixent Pen 300 mg/2 mL pen injector 300 mg subcut Q2W Hold Instructions: until discussed with Dr Howe atorvastatin 10 mg tablet 10 mg PO DAILY (DME) blood pressure test kit-large [[employer] BP Monitor] Kit See Rx Instructions .Route Qty: 1 0RF Rx Instructions: As directed Referrals: [facility] [place] [facility] [Provider Group] (Call to establish and follow up with an orthopedic provider. ) Maria Elena Miller MD [Primary Care Provider] - Stand Alone Forms: Work/School Release Interventions: ED Discharge Assessment Last Done: 03/16/23 06:59 Print Language: Martiniquais
--- NOTE | 2023-03-16 07:00 | PC.NURSE ---
Reviewed discharge instructions with patient who verbalized follow up instructions.
== END 2023-03-16 07:20 | disposition home or self-care (01) ==
PROVIDERS: Emergency Provider Internal Medicine; PCP Internal Medicine
DX: M17.0 Bilateral primary osteoarthritis of knee (principal); E11.9 Type 2 diabetes mellitus without complications; E66.9 Obesity, unspecified; Z68.41 Body mass index [BMI] 40.0-44.9, adult; Z90.49 Acquired absence of other specified parts of digestive tract; Z98.51 Tubal ligation status; Z98.84 Bariatric surgery status; Z87.891 Personal history of nicotine dependence; Z79.899 Other long term (current) drug therapy
CPT/HCPCS: 99283; 99284

== ENCOUNTER 2024-03-04 12:15 | Emergency (ER) | payer OTHER, SELFPAY ==
[2024-03-04 13:19] VITALS: BP 167/74; PULSE 70; RESP 18; TEMP 36.7; O2SAT 98; BMI 43.0
--- NOTE | 2024-03-04 13:21 | ED.HEATRA ---
HPI - Head Injury General Chief complaint: Wound/Laceration Stated complaint: Fall/Facial inj Time Seen by Provider: 03/04/24 15:19 Source: patient and family Mode of arrival: ambulatory Limitations: no limitations History of Present Illness HPI Narrative: 48-year-old female with a past medical history of diabetes and anxiety presents to emergency department, with family, after sustaining a mechanical fall while taking her trash out. She reports that she slipped and fell and hit her lip on the hitch of a trailer.. She reports she has a laceration to her inner right lower lip due to the fall with controlled bleeding at this time. She denies any trismus, loose, or broken teeth as a result of the fall. She is unsure when her last tetanus shot was. Pertinent positives and negatives discussed HPI Related Data Home Medications ?Medication ?Instructions ?Recorded ?Confirmed blood sugar diagnostic 08/16/22 02/17/23 blood sugar diagnostic 08/16/22 02/17/23 cetirizine 10 mg tablet 10 mg PO DAILY PRN Allergy Symptoms 08/16/22 02/17/23 dupilumab 300 mg/2 mL subcutaneous 300 mg subcut Q2W 08/16/22 02/17/23 pen injector ([employer]) montelukast 10 mg tablet 10 mg PO DAILY 08/16/22 02/17/23 sumatriptan succinate 25 mg tablet 25 mg PO Q2-4H PRN Headache 08/16/22 02/17/23 atorvastatin 10 mg tablet 10 mg PO DAILY 11/30/22 02/17/23 buspirone 5 mg tablet 5 mg PO BID 01/12/23 02/17/23 albuterol sulfate 90 mcg/actuation 1 inh inhalation QID PRN shortness 01/19/23 02/17/23 aerosol inhaler (ProAir HFA) of breath or wheezing fluticasone propionate 230 2 inh inhalation BID 01/19/23 02/17/23 mcg-salmeterol 21 mcg/actuation HFA inhaler sucralfate 100 mg/mL oral 10 ml PO BID 01/19/23 02/17/23 suspension (Carafate) Previous Rx's ?Medication ?Instructions ?Recorded albuterol sulfate 2.5 mg/3 mL 2.5 mg (3 mL) inhalation QID PRN 06/26/21 (0.083 %) solution for nebulization shortness of breath or wheezing #75 mL blood pressure test kit-large #1 ea 10/17/22 ([employer] Blood Pressure Monitor kit) pantoprazole 40 mg tablet,delayed 40 mg PO DAILY 90 days #90 tabs 02/07/23 release Allergies Allergy/AdvReac Type Severity Reaction Status Date / Time Seasonal Allergies Allergy Unknown itching Uncoded 03/04/24 13:23 Review of Systems Review of Systems: Yes all other systems are reviewed and are negative [facility] Past Medical History Medical History Anxiety Asthma Depression DJD (degenerative joint disease) Eczema GERD (gastroesophageal reflux disease) Hx of menorrhagia Migraines Morbid obesity Non-insulin dependent type 2 diabetes mellitus Surgical History History of tubal ligation Hx of carpal tunnel repair Hx of cholecystectomy Family History Family History Mother Diabetes Cancer Father Hypertension Diabetes Emphysema lung Heart disease Sister Asthma Heart disease Sister No problems noted. Son Asthma Son No problems noted. Daughter No problems noted. Social History Social History Household Members: Family Housing: Apartment Are you a primary animal caretaker to a significant other at home: No Do you presently have visiting nurse or other home services: No Alcohol intake: never Patient Tobacco Use Status: Former Tobacco user Advance Directives: No Advance Directives Information Provided: No Do you have a plan to hurt others: No Plan service: No Current occupational status: unemployed Physical Exam Vital Signs: Vital Signs: Last Vital Signs Temp 98 F 03/04/24 16:05 Pulse 61 03/04/24 16:05 Resp 20 03/04/24 16:05 BP 146/90 H 03/04/24 16:05 Pulse Ox 99 03/04/24 16:05 O2 Del Method Room Air 03/04/24 16:05 BMI result Body Mass Index 43.0 Nursing notes and vital signs reviewed. GENERAL APPEARANCE: A&0 x 4, generally well appearing, no acute distress HENMT: Normal to inspection, atraumatic, face symmetrical. Normal external ears, nose, and oropharynx clear. EYE: PERRLA, EOM intact, structures appear normal NECK: Supple without stiffness or restricted ROM. HEART: Normal rate and regular rhythm, normal S1/S2, no M/R/G LUNGS: LS CTA, moving air well. Able to speak in complete sentences. No crackles, wheezes, or rhonchi auscultated BACK: No CVAT, no obvious deformity EXTREMITIES: Moving all extremities without difficulty. Normal capillary refill. NEUROLOGICAL: Alert and oriented, moving all 4 extremities with equal strength. CN not formally tested but appearing grossly intact. Observed to ambulate with normal gait. Cognition normal SKIN: Warm and dry without any lesions, rash, or visible sores HEENT: Mouth/tongue images: 1. 6 mm linear laceration with controlled bleeding Course Course Course Narrative: This is a Rapid Medical Exam performed in triage by Jackie Hung PA-C. Full HPI, ROS and PE to be performed by primary ED provider. 48 year-old F w/ PMHx KALEB, migraines presenting to the ED c/o facial injury s/p trip and fall around 1145 AM when taking out the trash, fell onto vehicle hitch. denies LOC or taking AC. Tetanus unknown PE: +R lip (upper and lower) abrasions with lower lip internal laceration appreciated, not through & through. needing suture repair Plan: Repair laceration, Tdap Medications Administered Discontinued Medications Generic Name Dose Route Start Last Admin Trade Name Freq PRN Reason Stop Dose Admin Acetaminophen 975 mg 03/04/24 15:30 03/04/24 15:42 Acetaminophen 325 Mg Tablet PO 03/04/24 15:31 975 mg ONCE ONE Administration Diphtheria/Tetanus/Acell Pertussis 0.5 ml 03/04/24 13:24 03/04/24 15:43 Diphth,Pertus(Acell),Tet Adult 0.5 Ml Syringe IM 03/04/24 13:25 0.5 ml .ONCE ONE Administration Medical Decision Making Medical Decision Making MDM Narrative: Old records reviewed for previous imaging, lab studies, ECGs, and notes. Patient was assessed the emergency department with no acute distress or toxicity noted. 6 mm linear laceration noted a right lower lip. Patient declined sutures. Patient educated to use saltwater rinses in addition to peroxide based mouthwashes and good dental care to prevent infection. Patient educated to follow-up with her dentist in addition to her primary care provider for further evaluation as needed. Patient is safe for discharge at this time with plan for [id number] Tylenol and/or NSAID such as ibuprofen or naproxen for fever/discomfort with dosing as per packaging. HPI, PE, diagnostics, and plan discussed with patient and family with no unanswered questions at this time. Strict return precautions given to return to the emergency department with new, worsening, or concerning emergent symptoms. Recommended to follow-up with there primary care provider in 24-48 hours for further treatment and management. Differential Diagnosis Differential Diagnoses: The differential diagnosis associated with the presentation includes But not limited to fracture, dislocation, strain, sprain, spasm, laceration, contusion Independent Historian Clinical information obtained from an independent historian. History obtained from or confirmed by: Spouse External Record Review External record reviewed: Outpatient record and Prior outpatient labs Tests considered The following testing was considered but not selected: CT head but [place] CT head rule negative Prescription Management I considered prescription management with: Pain Medication Narcotic pain medication was considered, however; based on exam, side effects, and high-risk of addiction was deemed necessary at this time. Discharge Plan Discharge Clinical Impression: Fall, Laceration of lip Patient Disposition: Home, Self-Care Instructions: Laceration (ED), Fall Prevention (ED), Laceration Without Closure (ED) Additional Instructions: Your seen in the emergency department for concerns of a lip laceration. Sutures were declined. Is recommended that you keep your mouth as clean as possible with peroxide mouthwash and frequent tooth brushing. You are safe for discharge at this time with plan for management of fever or discomfort with [id number] Tylenol and/or NSAID such as ibuprofen or naproxen with dosing as per packaging. Please return to the emergency department with new, worsening, or concerning emergent symptoms. Recommended to follow-up with your primary care provider in 24-48 hours for further treatment and management. Thank you for choosing [facility]. Prescriptions: No Action pantoprazole 40 mg tablet,delayed release (DR/EC) 40 mg PO DAILY 90 Days Qty: 90 0RF albuterol sulfate 2.5 mg /3 mL (0.083 %) solution for nebulization 2.5 mg inhalation QID PRN (Reason: shortness of breath or wheezing) Qty: 75 0RF buspirone 5 mg tablet 5 mg PO BID sucralfate [Carafate] 100 mg/mL suspension 10 ml PO BID albuterol sulfate [ProAir HFA] 90 mcg/actuation HFA aerosol inhaler 1 inh inhalation QID PRN (Reason: shortness of breath or wheezing) fluticasone propion-salmeterol 230-21 mcg/actuation HFA aerosol inhaler 2 inh INHALATION BID (DME) blood sugar diagnostic Kit See Rx Instructions .Route Rx Instructions: As directed sumatriptan succinate 25 mg tablet 25 mg PO Q2-4H PRN (Reason: Headache) Rx Instructions: do not exceed 8 doses per 24 hrs cetirizine 10 mg tablet 10 mg PO DAILY PRN (Reason: Allergy Symptoms) montelukast 10 mg tablet 10 mg PO DAILY (DME) blood sugar diagnostic Strip See Rx Instructions .Route Rx Instructions: As directed Dupixent Pen 300 mg/2 mL pen injector 300 mg subcut Q2W Hold Instructions: until discussed with Dr Howe atorvastatin 10 mg tablet 10 mg PO DAILY (DME) blood pressure test kit-large [[employer] BP Monitor] Kit See Rx Instructions .Route Qty: 1 0RF Rx Instructions: As directed Referrals: [facility] [place] [facility] [Provider Group] [facility] [facility] [Provider Group] [facility] [place] Pediatric Care [Provider Group] Stand Alone Forms: Work/School Release Interventions: ED Discharge Assessment Last Done: 03/04/24 16:05 Discharge Date/Time: 03/04/24 16:06 Print Language: Georgian
[2024-03-04 15:27] VITALS: BP 146/90; PULSE 61; RESP 20; TEMP 36.6; O2SAT 99
[2024-03-04] MEDS: Acetaminophen 325 MG TABLET 975 MG PO (15:42)
[2024-03-04] MEDS: Diphth,Pertus(ACell),Tet Adult 0.5 ML SYRINGE IM (15:43)
[2024-03-04 16:05] VITALS: BP 146/90; PULSE 61; RESP 20; TEMP 36.6; O2SAT 99
--- OUTSIDE RECORDS SUMMARY | 2024-03-07 07:55 | XMS_ITS | Continuity of Care Document ---
Author Organization [facility] Address [address] [place] [address]- Care Team Providers Care Electronic Assembler Name Role Phone Re Delfino RIDLEY Syeda Primary Care Raúl matos [place] [facility] [place] 03/30/23 - 04/29/23 [facility] [address], [place] [address] Attending Physician: Edwin Chaparro Admitting Physician: AdmEdwin saravia Referring Physician: AdmtrEdwin Allergies, Adverse Reactions, Alerts No Known Allergies Medications Albuterol nebulizer, Inhalation, Every 6 hours, PRN Wheezing/Shortness of Breath, 0 Refills, Maintenance, 01/10/13 11:36:29 EDT Start Date: 01/10/13 Status: Ordered albuterol CFC free 90 mcg/inh inhalation aerosol 1, puffs, Inhalation, 4 times a day, PRN, # 25 Gm, Refills 0, Tot. Refills 0, Maintenance, 03/29/1614:25:33, Aerosol, Route to Pharmacy Electronically, [id number], [facility]/pharmacy #[id number], Compound Start Date: 03/29/16 Status: Ordered cetirizine 10 mg oral tablet, chewable 1 tablet = 10 mg, By Mouth, Daily, PRN for allergy symptoms, # 30 tablet, 0 Refills, Maintenance, 01/19/18 8:40:47 EDT, Chew Tablet Start Date: 01/19/18 Status: Ordered Dupixent Subcutaneous Infusion, Every 14 days, 0 Refills, Maintenance, 07/22/20 9:29:00 EST Start Date: 07/22/20 Status: Ordered Flovent HFA Inhalation, 2 times a day, PRN Wheezing/Shortness of Breath, 0 Refills, Maintenance, 01/10/13 11:36:44 EDT Start Date: 01/10/13 Status: Ordered ibuprofen 600 mg oral tablet See Instructions, # 40 tablet, TAKE 1 TABLET BY MOUTH EVERY 6 HOURS, [facility] #[id number] Start Date: 07/15/19 Status: Ordered montelukast 10 mg oral tablet 10 mg, 1, tablet, By Mouth, Daily in PM, # 30 tablet, Refills 0, Maintenance, 01/19/18 8:40:15 EDT Start Date: 01/19/18 Status: Ordered Problem List Condition Confirmation Course Effective Dates Status H ealth Status Informant Acute UTI Confirmed Active Cholelithiasis Confirmed Active Depression Confirmed Active Family history of breast cancer in mother Confirmed Active Asthma, moderate persistent Confirmed Active Morbid obesity Confirmed Active Severe obesity Confirmed Active Social History Social History Type Response Smoking Status Former smoker; Stopp ed at age: 41; Other: quit 11/2016; Started at age: 16; entered on: 11/30/17 Sex Patient Care team information Care Team Personnel Name: Syeda Riddle DO Position: [facility] Physician - Primary Care Member Role: PCP Address: Address: [address] [place] [id number]- Care Team Related Persons Name: BELEN RITCHIE Address: [address] [place] [address] Name: SHANA GONZALEZ Address: home [address] [place] [address]
--- OUTSIDE RECORDS SUMMARY | 2024-03-07 07:55 | XMS_ITS | Continuity of Care Document ---
Author Organization [facility] Address [address] [place] [address]- Care Team Providers Care Clasp Machine Operator Name Role Phone Syeda Riddle DO Primary Care Raúl matos Encounter [facility] [place] Date(s): 03/30/23 - 04/06/23 [facility] [address], [place] [address] Encounter Diagnosis Bilateral leg numbness(Discharge Diagnosis) - 03/30/23 Neuropathic pain, leg, bilateral(Discharge Diagnosis) - 03/30/23 Attending Physician: Rocky Benz MD Referring Physician: Syeda Riddle DO Allergies, Adverse Reactions, Alerts No Known Allergies Medications Albuterol nebulizer, Inhalation, Every 6 hours, PRN Wheezing/Shortness of Breath, 0 Refills, Maintenance, 01/10/13 11:36:29 EDT Start Date: 01/10/13 Status: Ordered albuterol CFC free 90 mcg/inh inhalation aerosol 1, puffs, Inhalation, 4 times a day, PRN, # 25 Gm, Refills 0, Tot. Refills 0, Maintenance, 03/29/1614:25:33, Aerosol, Route to Pharmacy Electronically, [id number], [facility]/pharmacy #[id number], Compound Start Date: 03/29/16 Status: [...] 1 TABLET BY MOUTH EVERY 6 HOURS, [facility] #[id number] Start Date: 07/15/19 Status: Ordered montelukast 10 [...] obesity Confirmed Active Severe obesity Confirmed Active Diagnosis Diagnosis Type Effective Dates Health Status Clinical Service Informant Bilateral leg numbness Discharge Diagnosis 03/30/23 Neuropathic pain, leg, bilateral Discharge Diagnosis 03/30/23 Vital Signs Most recent to oldest [Reference Range]: 1 Height 154.94 cm (03/30/23 9:18 AM) Oxygen Saturation [94-100 %] 100 % (03/30/23 9:18 AM) Pulse Rate [55-90 bpm] 50 bpm *L* (03/30/23 9:18 AM) Blood Pressure [90-138/55-84 mm Hg] 118/ 86mm Hg (03/30/23 9:18 AM) Respiratory Rate [16-30 br/min] 20 br/mi n (03/30/23 9:18 AM) Temperature [96.8-100.4 DegF] 97.1 DegF (03/30/23 9:18 AM) Mode of Delivery (Oxygen) Room air (03/30/23 9:18 AM) Blood pressure sites Arm, left (03/30/23 9:18 AM) Temperature Route Temporal (03/30/23 9:18 AM) Social History Social History Type Response Smoking Status Former smoker; Stopp ed at age: 41; Other: quit 11/2016; Started at age: 16; entered on: 11/30/17 Sex Note * Kandis Reyes: PERFORM, SIGN, VERIFY Event Display: Patient Education/Instruction Authored Date: [id number] [facility] *[facility] Clinical Summary Name CONI GONZALEZ Age 47 Years 1975 PCP Re Saleh Gunnar RIDLEYSyeda PCP Visit Date 03/30/2023 09:09:00 Additional Instructions: Scheduled Appointments?? Future Appointments ?No Future Appointments Scheduled Follow-Up Instructions ?? Diagnosis Anesthesia of skin; Unspecified mononeuropathy of bilateral lower limbs Medications: Please continue your medications until treatment is completed or stopped by your provider. Discuss any questions related to medications with your provider. Medications to Continue with No Changes These medications were not printed or sent to your pharmacy Albuterol nebulizer Inhalation every 6 hours as needed Wheezing/Shortness of Breath. Next Dose: Albuterol (albuterol CFC free 90 mcg/inh inhalation aerosol) 1 puff(s) Inhalation 4 times a day as needed for wheezing. Refills: 0. Next Dose: Cetirizine (cetirizine 10 mg oral tablet, chewable) 1 tab(s) Oral Daily as needed for allergy symptoms. Next Dose: dupilumab (Dupixent) Subcutaneous Infusion Every 14 days. Next Dose: Fluticasone (Flovent HFA) Inhalation twice a day as needed Wheezing/Shortness of Breath. Next Dose: Ibuprofen (ibuprofen 600 mg oral tablet) TAKE 1 TABLET BY MOUTH EVERY 6 HOURS. Refills: 0. Next Dose: Montelukast (montelukast 10 mg oral tablet) 1 tab(s) Oral Daily in PM. Next Dose: Allergy Info:?? NKA Medications Given This Visit Future Orders ?No future orders Vital Signs Height 154.94 cm Weight BMI Blood Pressure 118 mm Hg/86 mm Hg Temperature 97.1 DegF Pulse Rate 50 bpm Respiratory Rate 20 br/min 02 Sat Mode of Delivery 100 %/Room air You can now view a summary of your hospital visit from the comfort of your home through a free online portal called [employer]onmatch. [employer]match is a website that allows you to securely view your medical information including discharge summary, medications and follow-up visits. ??You can alsosend a secure electronic message to your doctor???s office to request appointments, renew medications or just ask a question. You can enroll at [email or web address] or register during your next office visit. Disclaimer:?? The information provided is of a general nature and is intended to be used in conjunction with the recommendations and advice of your health care practitioner. ??Every effort has been made to ensure that the information provided is accurate and complete at the time it is provided to you however, as your needs change, or, as new ??information becomes available, different or additional instructions may be required. If you have questions, please consult with your primary care provider or pharmacist, as appropriate. ??This information is not intended to serve as substitution for assessment and evaluation by a qualified health care provider. If you do not have a primary care provider, you may find a [facility] provider by calling [facility] at [phone]. For information about the plan of care including goals and instructions for your diagnosis, please see the patient education orders section of this document. Patient Education Materials?? The content of this educational material or handout may have been modified, supplemented, or adapted from its original content and format to support your individualized medical care. Patient Care team information Care Team Personnel Name: Syeda Riddle DO Position: S Physician - Primary Care Member Role: PCP Address: Address: [address] [place] [address]- Care Team Related Persons Name: BELEN RITCHIE Address: home [address] [place] [address] Name: SHANA GONZALEZ Address: [address] [place] [address]
--- OUTSIDE RECORDS SUMMARY | 2024-03-07 07:55 | XMS_ITS | Continuity of Care Document ---
Author Organization [facility] Address [address] [place] [address]- Care Team Providers Care Field Training Agent Name Role Phone Sofíamicki Syeda Saleh DO Primary Care Raúl torresyissel Encounter [facility] [place] Date(s): 11/27/23 - 12/27/[address] [address]- Attending Physician: Admtr, Ar8 Allergies, Adverse Reactions, Alerts No Known Allergies Medications Albuterol nebulizer, Inhalation, Every 6 hours, PRN Wheezing/Shortness of Breath, 0 Refills, Maintenance, 01/10/13 11:36:29 EDT Start Date: 01/10/13 Status: Ordered albuterol CFC free 90 mcg/inh inhalation aerosol 1, puffs, Inhalation, 4 times a day, PRN, # 25 Gm, Refills 0, Tot. Refills 0, Maintenance, 03/29/1614:25:33, Aerosol, Route to Pharmacy Electronically, [id number], [facility]/pharmacy #[id number], Compound Start Date: 03/29/16 Status: [...] 1 TABLET BY MOUTH EVERY 6 HOURS, [facility] #[id number] Start Date: 07/15/19 Status: Ordered montelukast 10 [...] History Type Response Smoking Status Former smoker; Stop ed at age: 41; Other: quit 11/2016; Started at age: 16; entered on: 11/30/17 Sex Patient Care team information Care Team Personnel Name: Syeda Riddle DO Position: [facility] Physician - Primary Care Member Role: PCP Address: Address: [address] [place] [address]- Care Team Related Persons Name: BELEN RITCHIE Address: home [address] [place] [address] Name: SHANA GONZALEZ Address: home [address] [place] [address]
--- OUTSIDE RECORDS SUMMARY | 2024-03-07 07:55 | XMS_ITS | Continuity of Care Document ---
Author Organization [facility] Address [address] [place] [address]- Care Team Providers Care Electrical Worker Name Role Phone Re Syeda Saleh DO Primary Care Kaileyrodríguez matos Encounter [facility] [place] [facility] R [id number] Date(s): 10/03/23 - 12/24/[address] [address] Attending Physician: Not on Staff, Attending MD Allergies, Adverse Reactions, Alerts No Known Allergies Medications Albuterol nebulizer, Inhalation, Every 6 hours, PRN Wheezing/Shortness of Breath, 0 Refills, Maintenance, 01/10/13 11:36:29 EDT Start Date: 01/10/13 Status: Ordered albuterol CFC free 90 mcg/inh inhalation aerosol 1, puffs, Inhalation, 4 times a day, PRN, # 25 Gm, Refills 0, Tot. Refills 0, Maintenance, 03/29/1614:25:33, Aerosol, Route to Pharmacy Electronically, [id number], [facility]/pharmacy #[id number], Compound Start Date: 03/29/16 [...] 1 TABLET BY MOUTH EVERY 6 HOURS, [facility] #[id number] Start Date: 07/15/19 Status: Ordered montelukast 10 [...] Team Personnel Name: Syeda Riddle DO Position: [facility] Physician - Primary Care Member Role: PCP Address: Address: [address] [place] [address]- Care Team Related Persons Name: BELEN RITCHIE Address: [address] [place] [address] Name: SHANA GONZALEZ Address: home [address] [place] [address]
== END 2024-03-04 16:06 | disposition home or self-care (01) ==
PROVIDERS: Emergency Provider Emergency Medicine
DX: S01.511A Laceration without foreign body of lip, initial encounter (principal); W01.10XA Fall on same level from slipping, tripping and stumbling with subsequent striking against unspecified object, initial encounter; Y93.9 Activity, unspecified; Y92.007 Garden or yard of unspecified non-institutional (private) residence as the place of occurrence of the external cause; Y99.8 Other external cause status; Z23 Encounter for immunization
CPT/HCPCS: 90471; 90715; 99283; 99284

== ENCOUNTER 2024-04-05 11:16 | Emergency (ER) | payer OTHER, SELFPAY ==
--- NOTE | ~2024-04-05 | XR_ITS ---
EXAMINATION: XR CHEST CLINICAL INFORMATION: Chest pain. COMPARISON: 08/25/2022 TECHNIQUE: 2 views of the chest were obtained. FINDINGS: The lungs are well expanded. No focal consolidation. No pleural effusion. Cardiac silhouette is unchanged. Surgical clips project over the upper abdomen. XR/XR chest 2V IMPRESSION: No acute abnormality.
--- NOTE | ~2024-04-05 | CT_ITS ---
EXAMINATION: CT HEAD WITHOUT CONTRAST CLINICAL INFORMATION: Fall. Head strike. COMPARISON: CT head from 03/24/2022. TECHNIQUE: Contiguous axial imaging was performed from the skull base to vertex without intravenous administration of contrast. This CT examination was performed using dose optimization techniques as appropriate, variously including the following: *Automated exposure control. *Adjustment of mA and/or kV according to patient size (this includes techniques or standardized protocols for targeted exams where dose is matched to indication/reason for exam; i.e. extremities or head). *Use of iterative reconstruction technique. DLP: 662 mGy-cm FINDINGS: There is no evidence of acute intracranial hemorrhage or edematous territorial infarction. Mi-white matter differentiation is preserved. There is no abnormal attenuation within the brain parenchyma. The ventricles are normal in morphology and size. No evidence for obstructive hydrocephalus. No abnormal mass effect or midline shift. No extra-axial fluid collections. No acute soft tissue or osseous abnormalities. Persistent metopic suture. Mild mucosal thickening of the paranasal sinuses. The mastoid air cells and middle ear cavities are clear. CT/CT head/brain wo IV con IMPRESSION: No evidence of acute intracranial hemorrhage or edematous territorial infarction.
--- NOTE | 2024-04-05 11:17 | ECG_ITS ---
Test Reason : cp Blood Pressure : / mmHG Vent. Rate : 066 BPM Atrial Rate : 066 BPM P-R Int : 202 ms QRS Dur : 096 ms QT Int : 430 ms P-R-T Axes : 038 -15 007 degrees QTc Int : 450 ms Normal sinus rhythm with sinus arrhythmia Nonspecific ST and T wave abnormality Abnormal ECG When compared with ECG of 25-AUG-2022 09:32, No significant change was found Referred By: Deena Lynn Electronically Signed By:DENISE FOSTER
[2024-04-05 11:36] VITALS: BP 171/92; PULSE 57; RESP 19; TEMP 36.6; O2SAT 100; BMI 42.9
--- NOTE | 2024-04-05 11:37 | ED.CHESTPAIN ---
HPI - Chest Pain General Chief Complaint: Chest Pain Stated Complaint: CP Time Seen by Provider: 04/05/24 12:08 Source: patient, RN notes reviewed and old records reviewed Mode of arrival: ambulatory History of Present Illness ED Provider: Jackie Hung PA-C HPI narrative: 48-year-old female with a past medical history of migraines, anxiety, depression, GERD, diabetes, obesity, asthma, presenting to the ED complaining increasing anxiety/panic attacks with associated CP and SOB x few weeks. States symptoms are intermittent. Admits panic attacks have been increasing since mechanical fall where she hit her face, was evaluated in our ED after incident. Reports headaches since fall. Denies nausea/vomiting, vision change/loss, abdominal pain denies taking anticoagulation Related Data Home Medications ?Medication ?Instructions ?Recorded ?Confirmed blood sugar diagnostic 08/16/22 02/17/23 blood sugar diagnostic 08/16/22 02/17/23 cetirizine 10 mg tablet 10 mg PO DAILY PRN Allergy Symptoms 08/16/22 02/17/23 dupilumab 300 mg/2 mL subcutaneous 300 mg subcut Q2W 08/16/22 02/17/23 pen injector (Dupixent) montelukast 10 mg tablet 10 mg PO DAILY 08/16/22 02/17/23 sumatriptan succinate 25 mg tablet 25 mg PO Q2-4H PRN Headache 08/16/22 02/17/23 atorvastatin 10 mg tablet 10 mg PO DAILY 11/30/22 02/17/23 buspirone 5 mg tablet 5 mg PO BID 01/12/23 02/17/23 albuterol sulfate 90 mcg/actuation 1 inh inhalation QID PRN shortness 01/19/23 02/17/23 aerosol inhaler (ProAir HFA) of breath or wheezing fluticasone propionate 230 2 inh inhalation BID 01/19/23 02/17/23 mcg-salmeterol 21 mcg/actuation HFA inhaler sucralfate 100 mg/mL oral 10 ml PO BID 01/19/23 02/17/23 suspension (Carafate) Previous Rx's ?Medication ?Instructions ?Recorded albuterol sulfate 2.5 mg/3 mL 2.5 mg (3 mL) inhalation QID PRN 06/26/21 (0.083 %) solution for nebulization shortness of breath or wheezing #75 mL blood pressure test kit-large #1 ea 10/17/22 ([email or web address] Blood Pressure Monitor kit) pantoprazole 40 mg tablet,delayed 40 mg PO DAILY 90 days #90 tabs 02/07/23 release Allergies Allergy/AdvReac Type Severity Reaction Status Date / Time Seasonal Allergies Allergy Unknown itching Uncoded 04/05/24 11:46 Review of Systems Review of Systems: Constitutional: No Fever, No Chills ENT/Mouth: No Ear Pain, No Nasal Congestion, No Sinus Pain, No Hoarseness, No sore throat, No Rhinorrhea, No Swallowing Difficulty Cardiovascular: + Chest Pain, + SOB Respiratory: No Cough, No Sputum Gastrointestinal: No Nausea, No Vomiting, No Diarrhea, No Constipation, No Abdominal pain Genitourinary: No Dysuria, No Urinary Frequency, No Hematuria, No Urinary Incontinence/retention, No Flank Pain Musculoskeletal: No joint pain, No Myalgias, No Joint Swelling Skin: No Skin Lesions, No rash Neuro: No Weakness, No Numbness, No Paresthesias, +JOSUE Psych: + anxiety/panic Yes all other systems are reviewed and are negative Constitutional: Constitutional: Reports as per HPI Neurologic: Denies Abnormal speech present [facility] Past Medical History Attestation statement: The following information was validated with the patient. Source: old records reviewed Medical History Hx of menorrhagia Migraines Anxiety Depression GERD (gastroesophageal reflux disease) Non-insulin dependent type 2 diabetes mellitus DJD (degenerative joint disease) Morbid obesity Eczema Asthma Surgical History Hx of carpal tunnel repair History of tubal ligation Hx of cholecystectomy Family History Family History Mother Diabetes Cancer Father Hypertension Diabetes Emphysema lung Heart disease Sister Asthma Heart disease Sister No problems noted. Son Asthma Son No problems noted. Daughter No problems noted. Social History Social History Household Members: Family Housing: Apartment Are you a primary long term care administrator to a significant other at home: No Do you presently have visiting nurse or other home services: No Alcohol intake: never Patient Tobacco Use Status: Former Tobacco user Smoked in Last 30 Days: No Use of substances other than those prescribed or required for medical reasons: No Advance Directives: No Advance Directives Information Provided: Yes Do you have a plan to hurt others: No Plan Patient : No service: No Current occupational status: unemployed Physical Exam Vital Signs: Vital Signs: Last Vital Signs Temp 97.8 F 04/05/24 16:00 Pulse 54 04/05/24 16:00 Resp 14 04/05/24 16:00 BP 127/46 L 04/05/24 16:00 Pulse Ox 100 04/05/24 16:00 O2 Del Method Room Air 04/05/24 16:00 BMI result Body Mass Index 42.9 Const: General: cooperative, healthy appearing and no acute distress Orientation/consciousness: patient oriented x3 Limitations: no limitations HEENT: Head: Yes normal to inspection and Yes atraumatic Ears: hearing grossly normal bilaterally General nose exam: Normal external nose present Face and sinus: Yes normal facial exam Throat: Yes posterior oropharynx normal, Yes uvula midline and No peritonsillar mass Eyes: General: appearance normal, both eyes and all related structures Pupils: Equal, round and reactive pupils present EOM: EOMs intact bilaterally Neck: Neck: Yes normal visual inspection and Yes no meningeal signs Resp: Effort & Inspection: normal respiratory effort and no respiratory distress Auscultation: clear to auscultation bilaterally, no crackles, no rales, no rhonchi and no wheezes Cardio: Rate: regular rate Heart sounds: S1 normal heart sound present and S2 normal heart sound present GI: Inspection: Yes normal to inspection Palpation (GI): Soft to palpation, nontender, no guarding and not rigid : General: Yes no CVA tenderness Back/Spine/Pelvis: Back: no CVA tenderness Skin: Rashes: no rashes Wounds: no wounds Neuro: General: patient oriented x3, gait normal, tone normal, moves all extremities, no meningeal signs, no focal motor deficits and CN's II-XI intact bilaterally Cranial nerves: Yes CN's II-XII intact bilaterally, Yes Equal, round and reactive pupils present and Yes Bilaterally intact EOM present Cognition (Neuro): normal cognition Speech: No Abnormal speech present Gait exam (Neuro): Normal gait present Motor exam (neuro): 5/5 motor strength present throughout and no tremor noted Extrem: General: Yes normal to inspection Psych: Other: +anxious Course Course Course Narrative: This is a Rapid Medical Examination (RME) performed by Leidy Lynn PA-C in triage. Full HPI, ROS, assessment and treatment plan per primary provider in the Main ED. 48 yo female here for eval of intermittent substernal chest pain lasting minutes x5 days. states the muscles in her chest feel tired . admits to assoc SOB, nausea w/o vomiting, numbness/tingling through whole body, now localized to hands. admits to anxiety. saw her PCP 2 weeks ago and reports elevated bp. no hx of HTN. reports fall 3 wks ago, seen at [facility] for eval at that time. is concerned this may be related. + exam nonfocal. no droop, no slurred speech, no pronator drift. rrr. lungs cta. Plan: labs, trop, ekg, cxr -labs reassuring. troponin negative XR chest 2V IMPRESSION: No acute abnormality. 1637--CT head/brain wo IV con IMPRESSION: No evidence of acute intracranial hemorrhage or edematous territorial infarction. Results discussed with patient including worrisome signs and symptoms and strict return precautions, and when to return to the emergency department. They verbalized understanding and feel safe for discharge at this time. Medications Administered Discontinued Medications Generic Name Dose Route Start Last Admin Trade Name Dakotaq PRN Reason Stop Dose Admin Lorazepam 1 mg 04/05/24 12:21 04/05/24 12:27 Lorazepam 1 Mg Tablet PO 04/05/24 12:22 1 mg ONCE ONE Administration Medical Decision Making Medical Decision Making [facility] Narrative: 48-year-old female with a past medical history of migraines, anxiety, depression, GERD, diabetes, obesity, asthma, presenting to the ED complaining increasing anxiety/panic attacks with associated CP and SOB x few weeks. Also reports headache since fall a few weeks ago. On exam vital signs stable, anxious, NAD/nontoxic appearing, lungs CTA, exam otherwise nonfocal. No focal neuro deficits. Concern for anxiety/panic attacks vs atypical ACS. Rule out infectious etiology vs viral illness vs pneumonia. Concern for possible concussion. Rule out ICH or fractures. Low suspicion for PE/dissection Plan: EKG, labs, CXR, viral testing, head CT, anxiolytic, re-evaluate Please refer to course for remaining clinical decision making, interpretation of labs/imaging results, and discussions with consultants and/or family members. Differential Diagnosis Differential Diagnoses: The differential diagnosis associated with the presentation includes As above Admission/Observation Consideration of admission/observation: Escalation of care including admission/observation considered Lab Data MDM Lab Attestation statement: I reviewed the patient's lab results. 04/05/24 12:16 04/05/24 12:04 Labs: Lab Results 04/05/24 04/05/24 Range/Units 12:04 12:16 WBC 8.6 (4.8-10.8) X10*3/uL RBC 4.58 (4.20-5.50) X10*6/uL Hgb 13.2 (12.0-16.0) g/dl Hct 39.1 (37.0-47.0) % MCV 85.4 (80.0-98.0) fL MCH 28.8 (27.0-33.0) pg MCHC 33.8 (31.0-35.0) g/dl RDW 12.7 (11.0-16.0) % Plt Count 253 (160-400) X10*3/uL MPV 10.9 (9.4-12.3) fL Immature Gran % (Auto) 0.3 (0.0-0.4) % Neut % (Auto) 48.0 (45-73) % Lymph % (Auto) 43.2 H (20-40) % Mcminn % (Auto) 7.0 (2-11) % Eos % (Auto) 1.3 (0-4) % Baso % (Auto) 0.2 (0-2) % Lymph # (Auto) 3.7 (1.2-4.9) X10*3/uL Mcminn # (Auto) 0.6 (0.1-1.2) X10*3/uL Eos # (Auto) 0.1 (0.0-0.4) X10*3/uL Baso # (Auto) 0.0 (0.0-0.2) X10*3/uL Abs Immat Gran (auto) 0.03 (0.00-0.03) X10*3/uL Absolute Neuts (auto) 4.1 (2.0-8.3) x10*3/uL Absolute Nucleated RBC 0.000 (0.0-0.012) X10*3/uL Nucleated RBC % (auto) 0.0 (0.0-0.2) /100WBC PT 13.6 H (11.1-13.3) SEC INR 1.1 (0.9-1.1) Sodium 141 (135-145) mmol/L Potassium 3.9 (3.3-5.1) mmol/L Chloride 107 (96-108) mmol/L Carbon Dioxide 24 (22-29) mmol/L Anion Gap 14 (12-20) BUN 9 (9-16) mg/dL Creatinine 0.70 (0.5-1.4) mg/dL Estim Creat Clear Calc 108.5 Estimated GFR > 60 Random Glucose 95 (60-115) mg/dL Calcium 9.8 D (8.4-10.2) mg/dL Magnesium 1.8 (1.6-2.6) mg/dL Total Bilirubin 0.8 (0.0-1.0) mg/dL AST 17 (5-31) U/L ALT 19 (0-31) U/L Alkaline Phosphatase 155 H (39-117) U/L Troponin I High Sens < 2.7 (<3.5-17.0) ng/L Total Protein 8.0 (6.5-8.0) g/dL Albumin 4.5 (3.5-5.0) g/dL Influenza Type A (PCR) NEGATIVE (Negative) Influenza Type B (PCR) NEGATIVE (Negative) RSV RNA Qual (PCR) NEGATIVE (Negative) SARS-CoV-2 RNA (RT-PCR) NEGATIVE (Negative) Radiology Impression Discussion of test interpretation with radiology: I have reviewed the radiologist's reading. External Record Review External record reviewed: Inpatient record, Office record, Outpatient record, Prior outpatient labs, Prior outpatient radiology, Primary care record and Outside ED record Tests considered The following testing was considered but not selected: As above Discharge Plan Discharge Clinical Impression: Atypical chest pain, Anxiety Patient Disposition: Home, Self-Care Instructions: Noncardiac Chest Pain (ED), Anxiety (ED) Additional Instructions: Your blood work and imaging are reassuring Please have close follow-up with her doctor Continue home prescribed medications If symptoms persist or worsen return to the ED Prescriptions: No Action pantoprazole 40 mg tablet,delayed release (DR/EC) 40 mg PO DAILY 90 Days Qty: 90 0RF albuterol sulfate 2.5 mg /3 mL (0.083 %) solution for nebulization 2.5 mg inhalation QID PRN (Reason: shortness of breath or wheezing) Qty: 75 0RF buspirone 5 mg tablet 5 mg PO BID sucralfate [Carafate] 100 mg/mL suspension 10 ml PO BID albuterol sulfate [ProAir HFA] 90 mcg/actuation HFA aerosol inhaler 1 inh inhalation QID PRN (Reason: shortness of breath or wheezing) fluticasone propion-salmeterol 230-21 mcg/actuation HFA aerosol inhaler 2 inh INHALATION BID (DME) blood sugar diagnostic Kit See Rx Instructions .Route Rx Instructions: As directed sumatriptan succinate 25 mg tablet 25 mg PO Q2-4H PRN (Reason: Headache) Rx Instructions: do not exceed 8 doses per 24 hrs cetirizine 10 mg tablet 10 mg PO DAILY PRN (Reason: Allergy Symptoms) montelukast 10 mg tablet 10 mg PO DAILY (DME) blood sugar diagnostic Strip See Rx Instructions .Route Rx Instructions: As directed Dupixent Pen 300 mg/2 mL pen injector 300 mg subcut Q2W Hold Instructions: until discussed with Dr Howe atorvastatin 10 mg tablet 10 mg PO DAILY (DME) blood pressure test kit-large [[employer] BP Monitor] Kit See Rx Instructions .Route Qty: 1 0RF Rx Instructions: As directed Referrals: Tavon Cardona MD [Primary Care Provider] - 5 days Print Language: [place]
[2024-04-05 12:13] VITALS: BP 160/84; PULSE 53; RESP 10; O2SAT 99
[2024-04-05 12:22] LABS: INTERNATIONAL NORM RATIO 1.1 (0.9-1.1); Prothrombin Time 13.6 SEC (11.1-13.3)
[2024-04-05 12:25] LABS: Alanine Aminotransferase 19 U/L (0-31); Albumin Level 4.5 g/dL (3.5-5.0); Alkaline Phosphatase 155 U/L (39-117); Anion Gap 14 (12-20); Aspartate Amino Transferase 17 U/L (5-31); Bilirubin Total 0.8 mg/dL (0.0-1.0); Blood Urea Nitrogen 9 mg/dL (9-16); Calcium 9.8 mg/dL (8.4-10.2); Carbon Dioxide 24 mmol/L (22-29); Chloride 107 mmol/L (96-108); Creatinine Clr Calc Pharmacy 108.5; Estimated Glomerular Filt Rate > 60; Glucose Random 95 mg/dL (60-115); Magnesium 1.8 mg/dL (1.6-2.6); Potassium 3.9 mmol/L (3.3-5.1); Sodium 141 mmol/L (135-145)
[2024-04-05] MEDS: LORazepam 1 MG TABLET PO (12:27)
[2024-04-05 12:29] LABS: MANUAL DIFF FLAG NO
[2024-04-05 12:32] LABS: Basophils Percent Auto 0.2 % (0-2); Eosinophils Absolute Auto 0.1 X10*3/uL (0.0-0.4); Eosinophils Percent Auto 1.3 % (0-4); Hematocrit 39.1 % (37.0-47.0); Hemoglobin 13.2 g/dl (12.0-16.0); Imm Gran Abs Auto 0.03 X10*3/uL (0.00-0.03); Imm Gran Pct Auto 0.3 % (0.0-0.4); Lymphocytes Absolute Auto 3.7 X10*3/uL (1.2-4.9); Lymphocytes Percent Auto 43.2 % (20-40); Mean Corpuscular HGB Conc 33.8 g/dl (31.0-35.0); Mean Corpuscular Hemoglobin 28.8 pg (27.0-33.0); Mean Corpuscular Volume 85.4 fL (80.0-98.0); Mean Platelet Volume 10.9 fL (9.4-12.3); Monocytes Absolute Auto 0.6 X10*3/uL (0.1-1.2); Neutrophils Absolute Auto 4.1 x10*3/uL (2.0-8.3); Platelet Count 253 X10*3/uL (160-400); Red Blood Count 4.58 X10*6/uL (4.20-5.50); Red Cell Distribution Width 12.7 % (11.0-16.0); White Blood Count 8.6 X10*3/uL (4.8-10.8)
[2024-04-05 12:32] LABS: Troponin-I High Sensitivity < 2.7 ng/L (<3.5-17.0)
[2024-04-05 12:48] LABS: Influenza A PCR NEGATIVE (Negative); Influenza B PCR NEGATIVE (Negative); Resp Syncy Virus RNA Qual PCR NEGATIVE (Negative); SARS COV2 PCR INHOUSE NEGATIVE (Negative)
[2024-04-05 14:00] VITALS: BP 111/65; PULSE 49; RESP 18; TEMP 36.6; O2SAT 98
--- NOTE | 2024-04-05 15:17 | PC.NURSE ---
patient resting comfortably on stretcher at this time offering no complaints, provided with warm blanket for comfort
[2024-04-05 16:00] VITALS: BP 127/46; PULSE 54; RESP 14; TEMP 36.6; O2SAT 100
[2024-04-05 16:39] VITALS: BP 127/46; PULSE 54; RESP 14; TEMP 36.6; O2SAT 100
== END 2024-04-05 16:46 | disposition home or self-care (01) ==
PROVIDERS: Physician Assistant Medical; Emergency Provider Emergency Medicine; PCP Family Medicine
DX: R07.89 Other chest pain (principal); F41.9 Anxiety disorder, unspecified; R06.02 Shortness of breath; R51.9 Headache, unspecified; Z03.818 Encounter for observation for suspected exposure to other biological agents ruled out; E11.9 Type 2 diabetes mellitus without complications; J45.909 Unspecified asthma, uncomplicated; Z87.891 Personal history of nicotine dependence
CPT/HCPCS: 0241U; 70450; 71046; 80053; 83735; 84484; 85025; 85610; 93005; 99284; 99285

== ENCOUNTER → 2024-04-05 11:17 | Outpatient (BNV) | payer OTHER, SELFPAY | PROVIDERS: Emergency Provider Emergency Medicine; PCP Family Medicine; Visit Provider Internal Medicine | DX: R94.31 Abnormal electrocardiogram [ECG] [EKG] (principal) | CPT/HCPCS: 93010 ==

== ENCOUNTER 2024-12-12 10:51 | Outpatient (AMB) | payer OTHER, SELFPAY ==
--- NOTE | 2024-12-12 10:57 | A.OFFVIS_ITS ---
VS Expanded 12/12/24 11:00 BP 129/64 Blood Pressure Location Lt brachial Blood Pressure Position Sitting Pulse 52 Pulse Source Pulse Oximeter Pulse Oximetry 98 Height 5 ft 1 in Weight 225 lb 6.4 oz BMI 42.6 Body Fat % 46.8 Body Fat Mass 105.4 Fat Free Mass 120.0 Visceral Fat Rating 14.0 Body Water % 37.9 Body Water Mass 85.4 Muscle Mass/Score 113.8 Basal Metabolic Rate/Score 1,694 Intake Visit Reasons: (OV) PO LSG 01/19/23 *GLP-1* [employer] Required: No Allergies Seasonal Allergies Allergy (Unknown, Uncoded 12/12/24 10:58) itching Medication List - Last Reconciled 12/12/24 by MISTY Wills albuterol sulfate 2.5 mg (3 mL) inhalation QID PRN albuterol sulfate 90 mcg/actuation (ProAir HFA) 1 inh inhalation QID PRN atorvastatin 10 mg PO DAILY blood pressure test kit-large ([employer] Blood Pressure Monitor kit) As directed blood sugar diagnostic As directed blood sugar diagnostic As directed buspirone 10 mg PO TID cetirizine 10 mg PO DAILY PRN cholecalciferol (vitamin D3) (Vitamin D3) 50 mcg PO DAILY dupilumab (Dupixent) 300 mg subcut Q2W fluticasone propion-salmeterol 230-21 mcg/actuation 2 inhalations inhalation BID hydroxyzine HCl 10 mg PO BEDTIME ipratropium-albuterol 0.5 mg-3 mg(2.5 mg base)/3 mL 3 mL inhalation QID montelukast 10 mg PO DAILY pantoprazole 20 mg PO QAM tacrolimus 0.1% topical BID PRN tirzepatide (weight loss) (Zepbound) 2.5 mg (0.5 mL) subcut QWEEK HPI Comments Details: This?a?47?yo female who is s/p LSG without hiatal hernia repair on?01/19/23. Presents for 4 week post op visit. Weight today is 225.4 pounds, with a BMI of 42.6. There has been a 34.6 pound weight loss,(initial weight 260 pounds) since starting the program on 08/24/22 reflecting a 13.3% total body weight loss and a weight loss of 23.8 pounds since surgery (operative weight 249.2 pounds) reflecting a 9.5% TBWL since surgery. No complaints of nausea, emesis, abdominal pain or reflux. She was last seen in the office on 02/17/2023 for her 1 month postop. At that time, her weight was 225.8 lb with a BMI of 42.7. She has not followed up in the last 2 years and has not done anything formal. She tried to make her life better due to stress. 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 Trailed [employer] for a month and changed to [employer] due to insurance. She was on it for a month but stopped due to issues with her PCP. Present meal plan includes: none 64 oz water ? Exercise routine includes: [email or web address] membership walking on treadmill Any post op complications: none KALEB: resolved DM: resolved HTN: never Hyperlipidemia: not sure GERD:?0-5 scale ??0 = no symptoms ??1 = symptoms noticeable but not bothersome 2 =symptoms bothersome but not daily ? 3 = symptoms bothersome and daily 4 = symptoms affect daily activities 5 = symptoms are incapacitating, unable to do daily activities ? How bad is the heartburn: 2 ? Heartburn while lying down: 0 ? Heartburn when standing up: 0 ? Heartburn after meals: 2 ? Does heartburn change your diet: 0 ? Does heartburn wake you up from sleep: 0 ? Do you have difficulty swallowin ? Do you have pain with swallowin ? If you take medicine for your reflux, does this affect your daily life: 0 Satisfaction with present condition - satisfied or not satisfied: dissatisfied [facility] Medical History Hx of menorrhagia Migraines Anxiety Depression GERD (gastroesophageal reflux disease) Non-insulin dependent type 2 diabetes mellitus DJD (degenerative joint disease) Morbid obesity Eczema Asthma Surgical History Hx of carpal tunnel repair History of tubal ligation Hx of cholecystectomy Family History Mother Diabetes Cancer Father Hypertension Diabetes Emphysema lung Heart disease Sister Asthma Heart disease Sister No problems noted. Son Asthma Son No problems noted. Daughter No problems noted. Social History Household Members: Family Housing: Apartment Are you a primary pet care worker to a significant other at home: No Do you presently have visiting nurse or other home services: No Alcohol intake: never Patient Tobacco Use Status: Former Tobacco user service: No Current occupational status: unemployed Physical Exam Const General: cooperative and no acute distress Orientation/consciousness: patient oriented x3 Resp Effort & Inspection: normal respiratory effort Auscultation: clear to auscultation bilaterally Cardio Rate: regular rate Rhythm: regular rhythm GI Inspection: Yes normal to inspection and Yes incision (well healed) Palpation (GI): Soft to palpation and no masses Neuro General: patient oriented x3 Assessment & Plan Assessment & Plan (1) S/P laparoscopic sleeve gastrectomy: Code(s): Z98.84 - Bariatric surgery status Category: Surgical Plan: Discussed with the patient the importance of following the meal plan. She will create a meal plan using [email or web address]. additionally, we will start Zepbound. She had this approved by her insurance in the past but there was some difficulty with her previous approval through her primary care physician. Additionally, we discussed the importance of exercise as it directly relates to weight loss. She will go to the gym daily with a goal of burning 300 calories per day utilizing cardio equipment. We will check 2 year postop labs. We will have her return to the office in approximately 4-6 weeks. I gave her my cell phone number so she may communicate directly with me regarding her weights weekly and with any questions or concerns Orders: Orders Hemoglobin A1c Today E55.9 - Vitamin D deficiency, unspecified, F41.9 - Anxiety disorder, unspecified, K76.0 - Fatty (change of) liver, not elsewhere classified, Z98.84 - Bariatric surgery status Complete Blood Count Auto Diff Today E55.9 - Vitamin D deficiency, unspecified, F41.9 - Anxiety disorder, unspecified, K76.0 - Fatty (change of) liver, not elsewhere classified, Z98.84 - Bariatric surgery status Lipid Panel Today E55.9 - Vitamin D deficiency, unspecified, F41.9 - Anxiety disorder, unspecified, K76.0 - Fatty (change of) liver, not elsewhere classified, Z98.84 - Bariatric surgery status Comprehensive Met. Panel Today E55.9 - Vitamin D deficiency, unspecified, F41.9 - Anxiety disorder, unspecified, K76.0 - Fatty (change of) liver, not elsewhere classified, Z98.84 - Bariatric surgery status Vitamin B12 and Folate Today E55.9 - Vitamin D deficiency, unspecified, F41.9 - Anxiety disorder, unspecified, K76.0 - Fatty (change of) liver, not elsewhere classified, Z98.84 - Bariatric surgery status Vitamin D 25-OH Total Today E55.9 - Vitamin D deficiency, unspecified, F41.9 - Anxiety disorder, unspecified, K76.0 - Fatty (change of) liver, not elsewhere classified, Z98.84 - Bariatric surgery status Insulin Today E55.9 - Vitamin D deficiency, unspecified, F41.9 - Anxiety disorder, unspecified, K76.0 - Fatty (change of) liver, not elsewhere classified, Z98.84 - Bariatric surgery status IRON PROFILE Today E55.9 - Vitamin D deficiency, unspecified, F41.9 - Anxiety disorder, unspecified, K76.0 - Fatty (change of) liver, not elsewhere classified, Z98.84 - Bariatric surgery status Zinc Today E55.9 - Vitamin D deficiency, unspecified, F41.9 - Anxiety disorder, unspecified, K76.0 - Fatty (change of) liver, not elsewhere classified, Z98.84 - Bariatric surgery status C Reactive Protein Today E55.9 - Vitamin D deficiency, unspecified, F41.9 - Anxiety disorder, unspecified, K76.0 - Fatty (change of) liver, not elsewhere classified, Z98.84 - Bariatric surgery status Vitamin B1 Today E55.9 - Vitamin D deficiency, unspecified, F41.9 - Anxiety disorder, unspecified, K76.0 - Fatty (change of) liver, not elsewhere classified, Z98.84 - Bariatric surgery status Vitamin A Today E55.9 - Vitamin D deficiency, unspecified, F41.9 - Anxiety disorder, unspecified, K76.0 - Fatty (change of) liver, not elsewhere classified, Z98.84 - Bariatric surgery status TSH reflex Free T4 Today E55.9 - Vitamin D deficiency, unspecified, F41.9 - Anxiety disorder, unspecified, K76.0 - Fatty (change of) liver, not elsewhere classified, Z98.84 - Bariatric surgery status Ferritin Today E55.9 - Vitamin D deficiency, unspecified, F41.9 - Anxiety disorder, unspecified, K76.0 - Fatty (change of) liver, not elsewhere classified, Z98.84 - Bariatric surgery status Medications: New tirzepatide (weight loss) (Zepbound) for 4 weeks 2.5 mg (0.5 mL) subcut QWEEK 2 mL 0RF
[2024-12-12 11:00] VITALS: BP 129/64; PULSE 52; O2SAT 98; BMI 42.6
--- OUTSIDE RECORDS SUMMARY | 2024-12-12 12:06 | XMS_ITS | Clinical Summary ---
Author Organization [facility] [address] [place] [address] Address [address] [place] [address] Phone Care Team Providers Care Venipuncturist Name Role Phone Maria Elena López MD Primary Care Provider [phone] Allergies Active Allergy Reactions Criticality Noted Date Comments Other 06/17/2016 Seasonal Allergies Medications acetaminophen (TYLENOL) 500 mg tablet TAKE 1 TABLET BY MOUTH 3 TIMES DAILY NEEDED (PAIN). 02/19/20 24 Active fluticasone propion-salmeter oL (Advair HFA) 115-21 mcg/actuation inhaler TAKE 2 PUFFS TWICE PER DAY. RINSE MOUTH AFTER EACH ADMINISTRATION TO AVOID FUNGAL INFECTION DO TO USE OF INHALED STEROID. 02/06/20 24 Active dupilumab (Dupixent Pen) 300 mg/2 mL pen Inject 2 mL into the skin every 14 days. 07/09/20 21 Active montelukast (SINGULAIR) 10 mg tablet Take 1 Tablet by mouth at bedtime. 03/25/20 24 Active pantoprazole (PROTONIX) 20 mg EC tablet Take 1 Tablet by mouth daily. TAKE 1 TABLET BY MOUTH EVERY DAY BEFORE BREAKFAST EVERY MORNING 01/03/20 24 Active Vitamin D3 50 mcg (2,000 unit) tablet TAKE 1 TABLET BY MOUTH EVERY DAY 90 tablet 1 08/22/20 24 Active busPIRone (BUSPAR) 10 mg tablet TAKE 1 TABLET BY MOUTH 3 TIMES DAILY FOR 30 DAYS. 270 tablet 1 08/28/20 24 Active hydrOXYzine HCL (ATARAX) 10 mg tablet TAKE 1 TABLET BY MOUTH AT BEDTIME NEEDED FOR ANXIETY (INSOMNIA) 90 tablet 1 08/28/20 24 Active Ventolin HFA 90 mcg/actuation inhalerIndicatio ns:Severe persistent asthma with (acute) exacerbation (CMS/HCC) INHALE 2 PUFFS INTO THE LUNGS EVERY 4 HOURS NEEDED FOR COUGH OR WHEEZING. 54 each 1 09/24/19 25 Active ipratropium-albu teroL (DUONEB) 0.5-2.5 mg/3 mL nebulizer solutionIndicati ons:Severe persistent asthma with (acute) exacerbation (CMS/HCC) INHALE 3 ML INTO THE LUNGS 4 TIMES DAILY. 270 mL 2 10/18/19 25 Active tirzepatide, weight loss, (Zepbound) 5 mg/0.5 mL injectionIndicat ions:Morbid obesity with BMI of 45.0-49.9, adult (CMS/HCC) Inject 0.5 mL (5 mg total) under the skin every 7 (seven) days. 2 mL 11/13/19 25 Active Active Problems Problem Noted Date Diagnosed Date Morbid obesity with BMI of 45.0-49.9, adult 04/2024 Ascending aorta dilatation 05/19/2022 Overview (07/19/2024): 4.1 cm, noted on Echo 2021 LVH (left ventricular hypertrophy) 05/19/2022 Overview (07/19/2024): Mild, noted on Echo 2021 Right carpal tunnel syndrome 04/15/2022 Diabetes mellitus, new onset 02/15/2022 Left carpal tunnel syndrome 11/11/2021 Overview (07/19/2024): Mild to moderate bilateral Eczema 09/08/2021 Grief 08/13/2021 Mood swings 08/13/2021 Overview (07/19/2024): Son with bipolar disorder. Patient experiencing symptoms of possible bipolar disorder. Psychiatric consult pending. Obstructive sleep apnea 04/20/2020 Overview (07/19/2024): [facility] Home Sleep Apnea Test: Date 04/14/2020; BMI 39; RDI 53, AHI 48; average oxygen saturation 96% (lowest 90% without saturations <88% for 5% or more of study) - Obstructive Sleep Apnea - moderate; without sleep related hypoventilation by 2019 home sleep apnea test. Elevated alkaline phosphatase level 11/27/2019 Depression 05/06/2019 Allergic rhinitis due to pollen 06/28/2018 Moderate persistent asthma 06/28/2018 Post-nasal drainage 06/28/2018 Encounters Date Type Department Care Team Description 11/21/2024 Telephone Adult [address] [phone] Maria Elena López MD prior auth for medication 10/16/2024 Telephone Adult [address] [phone] Maria Elena López MD Medication Problem 10/09/[address] [phone] Maria Elena López MD prior auth for medication; Medication Problem 10/07/2024 12:45 PM EST Office Visit Adult [address] [phone] Diogenes Mcgrath PA Morbid obesity with BMI of 45.0-49.9, adult ([facility]) 09/19/[address] [phone] Maria Elena óLpez MD Forms/questionnaires 09/19/[address] [place] [address] Becky Friedman NP Forms/questionnaires from Last 3 Months Surgical History Surgery Date Site/Laterality Comments TUBAL LIGATION PROCEDURE: HISTORICAL TUBAL LIGATION CHOLECYSTECTOMY PROCEDURE: HISTORICAL CHOLECYSTECTOMY TONSILLECTOMY 07/27/2020 PROCEDURE: HISTORICAL TONSILLECTOMY; COMMENT: Dr Ronquillo COLONOSCOPY 12/01/2020 PROCEDURE: HISTORICAL COLONOSCOPY; COMMENT: Visually normal; random biopsies obtained; pathology: Normal. UPPER GASTROINTESTINAL ENDOSCOPY 12/01/2020 PROCEDURE: TN UPPER GI ENDOSCOPY PERFORMED; COMMENT: 3 cm hiatal hernia; approximate grade C reflux esophagitis; duodenal and esophageal biopsies obtained: Duodenal biopsies normal, esophageal biopsies showed acute inflammation without evidence of virus or fungal infection. ABDOMINAL SURGERY 01/19/2023 PROCEDURE: HISTORICAL ABDOMINAL SURGERY; COMMENT: Gastric Sleeve Medical History Medical History Date Comments Family history of breast cancer DX:Family history of breast cancer CTS (carpal tunnel syndrome) DX: CTS (carpal tunnel syndrome) Allergic rhinitis due to pollen 06/28/2018 DX:Allergic rhinitis due to pollen House dust mite allergy 06/28/2018 DX:House dust mite allergy Moderate persistent asthma w ith acute exacerbation 06/28/2018 DX:Moderate persistent asthm a with acute exacerbation Morbid obesity with BMI of 4 0.0-44.9, adult ([facility]) 01/15/2018 DX:Morbid obesity with BMI o f 40.0-44.9, adult ([facility]) Post-nasal drainage 06/28/2018 DX:Post-nasa l drainage Prediabetes 02/12/2018 DX:Prediabetes Diabetes mellitus, new onset ([facility]) 02/15/2022 DX:Diabetes mellitus, new on set ([facility]) Family History Medical History Relation Name Comments Asthma Brother Stroke Father htn, diabetes Breast cancer Mother diabetes. Asthma Sister Coronary artery disease Sister Colon cancer Neg Hx Relation Name Status Comments Brother Father Mother Sister Social History Tobacco Use Types Packs/Day Years Used Date Smoking Tobacco: Former Cigarettes Q uit: 09/28/2017 Smokeless Tobacco: Never Tobacco Cessation:Counseling Given: Not Answered Alcohol Use Standard Drinks/Week Comments No 0 (1 standard drink = 0.6 oz pur e alcohol) Housing Instability Answer Date Recorde d Are you worried that in the next 2 months you may not have stable housing? No 08/21/2024 Food Access & Nutrition Answer Date Rec orded Do you have access to a vari ety of food including fruits and vegetables? Yes 08/21/2024 Access to Healthcare Answer Date Record ed Within the last 3 months, ho w many times did you visit the emergency department for your medical care? 1 08/21/2024 Health Literacy Answer Date Recorded How often do you need to hav e someone help you when you read instructions, pamphlets, or other written material from your doctor or pharmacy? Never 08/21/2024 Caregiver: How often do you need to have someone help you when you read instructions, pamphlets, or other written material from your doctor or pharmacy? Not on file 08/21/2024 Financial Risk Answer Date Recorded How hard is it for you to pa y for the very basics like food, housing, medical care, and air conditioning / heating? Not very hard 08/21/2024 Transportation Answer Date Recorded Has the lack of transportati on kept you from meetings, work, or from getting things needed for daily living? No Has the lack of transportati on kept you from medical appointments or from getting medications? No 08/21/2024 Social Isolation Answer Date Recorded How often do you feel lonely or isolated from th ose around you? Often 08/21/2024 Food Risk Answer Date Recorded Within the past 12 months we worried whether our food would run out before we got money to buy more. Never true 08/21/2024 Within the past 12 months th e food we bought just didn't last and we didn't have money to get more. Never true 08/21/2024 Dependent Care Answer Date Recorded Do you need help finding or paying for care for your loved ones. For example, child welfare worker or elderly care for an older adult? No 08/21/2024 Education Answer Date Recorded Do you think completing more education or training, like finishing a GED, going to college, or learning a trade, would be helpful for you? Patient declined 08/21/2024 Employment and Income Answer Date Recor ded During the last four weeks, have you been actively looking for work? Yes 08/21/2024 Living Situation Answer Date Recorded What is your living situation? 1 10/22/2023 Comments No Sex and Gender Information Value Date Recorded Sex Assigned at Not on file Legal Sex Female 4:32 AM EST Gender Identity Not on file Sexual Orientation Not on file Obstetrics History Last Filed Vital Signs Vital Sign Reading Time Taken Comments Blood Pressure 110/70 10/07/2024 12:40 PM EST Pulse 80 10/07/2024 12:40 PM EST Temperature 36.8 ??C (98.3 ??F) 10/07/2024 12:[address] Respiratory Rate 12 10/07/2024 12:40 PM EST Oxygen Saturation - - Inhaled Oxygen Concentration - - Weight 107 kg (236 lb) 10/07/2024 12:40 PM EST Height 154.9 cm (5' 1 ) 10/07/2024 12:40 PM EST Body Mass Index 44.59 10/07/2024 12:40 PM EST Plan of Treatment Upcoming Encounters Date Type Department Care Team (Late st Contact Info) Description 12/18/2024 1:15 PM EDT Office Visit [place] [facility] [address] [place] [address] Diogenes Mcgrath PA [address] [place] [address] 03/25/2025 9:10 AM EDT Office Visit Pulmonolgy - [place] [address] [facility] [address] [place] [address] Becky Friedman NP [address] [facility] [address] [place] [address] Health Maintenance Due Date Last Done Comments Diabetes: Annual Foot Exam 1985 Diabetes: Annual Retina Eye Exam 1985 Hepatitis B Vaccines (1 of 3 - 19+ 3-dose series) 1994 Pneumococcal Vaccine: Pediatrics (0 to 5 Years) and At-Risk Patients (6 to 64 Years) (2 of 2 - PPSV23) 04/24/2017 02/27/2017 Cervical Cancer Screening: Pap Smear 08/12/2022 08/12/2019 Colorectal Cancer Screening: Colonoscopy 08/20/2022 HIV Screening 08/20/2022 Hepatitis C Screening 08/20/2022 Diabetes: Annual Urine Albumin-Creatinine Ratio (uACR) 03/22/2024 03/22/2023 COVID-19 Vaccine ( season) 2024 09/14/2021, 01/02/2021, 12/05/2020 Diabetes: Blood Sugar Control Test (HGBA1C) 11/26/2024 05/29/2024, 05/29/2024 Influenza Vaccine (Season Ended) 2025 07/25/2023, 05/27/2021, 05/14/2020, Additional history exists Depression Screening 08/21/2025 08/21/2024, 01/03/20 24 Social Influencers of Health Screening 08/21/2025 08/21/2024 Diabetes: Annual GFR (Glomerular Filtration Rate) 08/26/2025 08/26/2024, 05/29/2024, 05/29/2024 Breast Cancer Screening 10/02/2025 10/02/19 24, 09/26/2022, 09/24/2021, Additional history exists Cholesterol Screening (Lipid Panel) 08/26/2029 08/26/2024, 05/29/2024, 05/29/2024 DTaP,Tdap,and Td Vaccines (3 - Td or Tdap) 03/04/2034 03/04/2024, 06/17/2016 MMR Vaccines Aged Out 08/08/2012 No longer eligi ble based on patient's age to complete this topic HIB Vaccines Aged Out No longer eligi ble based on patient's age to complete this topic HPV Vaccines Aged Out No longer eligi ble based on patient's age to complete this topic Hepatitis A Vaccines Aged Out No long er eligible based on patient's age to complete this topic IPV Vaccines Aged Out No longer eligi ble based on patient's age to complete this topic Meningococcal ACWY Vaccine Aged Out N o longer eligible based on patient's age to complete this topic Meningococcal B Vacine Aged Out No lo nger eligible based on patient's age to complete this topic RSV Immunization Patients Under 20 months Aged Out No longer eligible based on patient's age to complete this topic Varicella Vaccines Aged Out No longer eligible based on patient's age to complete this topic Procedures Procedure Name Priority Date/Time Associated Diagnosis Comments COMPREHENSIVE METABOLIC PANEL Routine 08/26/2024 8:41 AM EST Morbid obesity with BMI of 45.0-49.9, adult ([facility]) LIPID PANEL WITH REFLEX TO DIRECT LDL Routine 08/26/2024 8:41 AM EST Morbid obesity with BMI of 45.0-49.9, adult ([facility]) HEMOGLOBIN A1C Routine 05/29/2024 HM DEPRESSION SCREENING Routine 01/03/2024 AUBRIE SCREENING DIGITAL Routine 10/02/2023 11:51 AM EST Encounter for screening mammogram for malignant neoplasm of breast URINE ALBUMIN CREATININE RATIO Routine 03/22/2023 PAP SMEAR Routine 08/12/2019 from Last 3 Months or Most Recently Relevant to Health Maintenance Results * (ABNORMAL) Lipid panel with reflex to direct LDL (08/26/2024 8:41 AM EST) Cholesterol 207(H) 0 - 200 mg/dL LAB CHEMISTRY METHOD 08/26/2024 4:55 PM EST [facility] Triglycerides 99 0 - 150 mg/dL LAB CHEMISTRY METHOD 08/26/2024 4:[address] [facility] HDL 74 >=40 mg/dL LAB CHEMISTRY METHOD 08/26/2024 4:[address] [facility] LDL Calculated 113(H) 0 - 100 mg/dL LAB CHEMISTRY METHOD 08/26/2024 4:55 PM EST [facility] VLDL Cholesterol Alvarez 19.8 mg/dL LAB CHEMISTRY METHOD 08/26/2024 4:[address] [facility] Non HDL Chol. (LDL+VLDL) 133 <145 mg/dL LAB CHEMISTRY METHOD 08/26/2024 4:55 PM EST [facility] Chol/HDL Ratio 2.8 0.0 - 4.4 LAB CHEMISTRY METHOD 08/26/2024 4:[address] [facility] Blood Venous blood specimen / Unknown Venipuncture / Unknown 08/26/2024 8:41 AM EST 08/26/2024 8:41 AM EST us Maria Elena López MD LAB BLOOD ORDERABLES Final Resul t [facility] [address] [place] [address], * (ABNORMAL) Comprehensive metabolic panel (08/26/2024 8:41 AM EST) Sodium 141 133 - 145 mmol/L LAB CHEMISTRY METHOD 08/26/2024 4:[address] [facility] Potassium 4.7 3.5 - 5.5 mmol/L LAB CHEMISTRY METHOD 08/26/2024 4:[address] [facility] Chloride 107 96 - 110 mmol/L LAB CHEMISTRY METHOD 08/26/2024 4:[address] [facility] CO2 29 21 - 32 mmol/L LAB CHEMISTRY METHOD 08/26/2024 4:[address] [facility] Anion Gap 5 3 - 11 LAB CHEMISTRY METHOD 08/26/2024 4:[address] [facility] Glucose 100 70 - 100 mg/dL LAB CHEMISTRY METHOD 08/26/2024 4:[address] [facility] BUN 10 5 - 25 mg/dL LAB CHEMISTRY METHOD 08/26/2024 4:[address] [facility] Creatinine 0.85 0.50 - 1.10 mg/dL LAB CHEMISTRY METHOD 08/26/2024 4:[address] [facility] eGFR 84 >=60 mL/min/1. 73m2 LAB CHEMISTRY METHOD 08/26/2024 4:[address] [facility] Comment:Calculation based on the??Chronic Kidney Disease Epidemiology Collaboration (CKD-EPI) equation refit??without adjustment for race. BUN/Creatinine Ratio 11.8 LAB CHEMISTRY METHOD 08/26/2024 4:[address] [facility] Calcium 9.4 8.5 - 10.5 mg/dL LAB CHEMISTRY METHOD 08/26/2024 4:[address] [facility] AST (SGOT) 15 10 - 42 unit/L LAB CHEMISTRY METHOD 08/26/2024 4:[address] [facility] ALT (SGPT) 22 10 - 60 unit/L LAB CHEMISTRY METHOD 08/26/2024 4:[address] [facility] Alkaline Phosphatase 167(H) 42 - 121 unit/L LAB CHEMISTRY METHOD 08/26/2024 4:32 PM EST [facility] Total Protein 7.5 6.0 - 8.0 g/dL LAB CHEMISTRY METHOD 08/26/2024 4:32 PM EST [facility] Albumin 3.8 3.2 - 5.0 g/dL LAB CHEMISTRY METHOD 08/26/2024 4:32 PM EST [facility] Total Bilirubin 0.6 0.0 - 1.4 mg/dL LAB CHEMISTRY METHOD 08/26/2024 4:32 PM EST [facility] Blood Venous blood specimen / Unknown Venipuncture / Unknown 08/26/2024 8:41 AM EST 08/26/2024 8:41 AM EST Maria Elena López MD LAB BLOOD ORDERABLES Final Resul t [facility] [address] [place] [address], * Hemoglobin A1c (05/29/2024) Hemoglobin A1C 5.6 <=6.5 % Blood Venous blood specimen / Unknown Historical Provider LAB BLOOD ORDERABLES Marisol l Result * Depression Screening (01/03/2024) Depression Screening Abstracted Historical Provider HEALTH MAINTENANCE Final Result * AUBRIE SCREENING DIGITAL (10/02/2023 11:51 AM EST) Anatomical Region Laterality Modality Mammography 10/02/2023 11:1 2 AM EST Narrative 10/02/2023 11:51 AM EST [facility] Diagnostic Imaging Department [address] [place] [address] Patient: ??CONI LU ?/Age/Sex: 1975 - 48 - F Unit#: ??[id number] ? Location/Status: ??SPDIMAM/REG CLI ? Mnemonic/Ordering Site: ??DIGSC/SPMAM Ordering Physician: ??MARIA ELENA LÓPEZ [facility] Screening Digital - 10/02/23 - 1132 Report Status:Signed EXAM: [facility] Screening Digital EXAM DATE AND TIME: 10/02/2023 11:32 AM HISTORY: ??Annual screening COMPARISON: ??Multiple exams dating back to 2017 TECHNIQUE: Bilateral digital breast tomosynthesis was performed in the CC and MLO projections. Computer aided detection with [employer] 3D 3.1 was employed. TISSUE DENSITY: b. There are scattered areas of fibroglandular density. FINDINGS: No suspicious masses, grouped microcalcifications, or areas of architectural distortion are seen. The skin and vascularity are unremarkable. IMPRESSION: Stable mammographic appearance of the breasts. ??No evidence of malignancy is seen. A negative mammogram in the presence of a clinically suspicious palpable abnormality does not preclude the possibility of malignancy or alter the indications for biopsy. BI-RADS: ??Category 1: Negative RECOMMENDATION(S): 1: Routine screening mammogram BILATERAL in 1 year. 3341F, 7025F Dictating Physician: ??EDIS HERRERA MD Electronically Signed by: ??EDIS HERRERA MD Dic Date/Time: ??10/02/23 1150 Sign date/Time: ??10/02/23 1151 Procedure Note Edis Herrera MD - 04/29/2024 [facility] Diagnostic Imaging Department [address] [place] [id number] Patient: CONI LU /Age/Sex: 1975 - 48 - F Unit#: [id number] Location/Status: SPDIMAM/REG CLI Mnemonic/Ordering Site: [facility] Ordering Physician: MARIA ELENA LÓPEZ [facility] Screening Digital - 10/02/23 - 1132 Report Status:Signed EXAM: [facility] Screening Digital EXAM DATE AND TIME: 10/02/2023 11:32 AM HISTORY: Annual screening COMPARISON: Multiple exams dating back to 2017 TECHNIQUE: Bilateral digital breast tomosynthesis was performed in the CCand MLO projections. Computer aided detection with [employer] 3D 3.1was employed. TISSUE DENSITY: b. There are scattered areas of fibroglandular density. FINDINGS: No suspicious masses, grouped microcalcifications, or areas ofarchitectural distortion are seen. The skin and vascularity are unremarkable. IMPRESSION: Stable mammographic appearance of the breasts. No evidence of malignancyis seen. A negative mammogram in the presence of a clinically suspicious palpable abnormality does not preclude the possibility of malignancy or alter the indications for biopsy. BI-RADS: Category 1: Negative RECOMMENDATION(S): 1: Routine screening mammogram BILATERAL in 1 year. 3341F, 7025F Dictating Physician: EDIS HERRERA MD Electronically Signed by: EDIS HERRERA MD Dic Date/Time: 10/02/23 1150 Sign date/Time: 10/02/23 1151 Result [facility] Maria Elena López MD IMG BI PROCEDURES Final Result * Urine Albumin Creatinine Ratio (03/22/2023) Urine Albumin Creatinine Ratio Abstracted Historical Provider HEALTH MAINTENANCE Final Result * Pap Smear (08/12/2019) Pap smear Abstracted, no interpretation Result [facility] Historical Provider HEALTH MAINTENANCE Final Result from Last 3 Months or Most Recently Relevant to Health Maintenance Insurance [facility] [employer] PLAN [facility] Care Teams Venipuncturist Relationship Specialty Start Date End Date Maria Elena López MD [address] [place] [id number] PCP - General Internal Medicine 05/10/22
--- OUTSIDE RECORDS SUMMARY | 2024-12-12 12:06 | XMS_ITS | Encounter Summary ---
Author Organization [facility] Address [address] [place] [address] Care Team Providers Care Assembly Line Inspector Name Role Phone Maria Elena Miller MD Primary Care Provider [phone] Reason for Visit * Reason Onset Date Comments prior auth for medication 11/21/2024 Encounter Details Date Type Department Care Team ([facility] st Contact Info) Description 11/21/2024 Telephone Adult Medicine [address] [phone] Maria Elena Miller MD [address] [place] [phone] prior auth for medication Social History Tobacco Use Types Packs/Day Years Used Date Smoking Tobacco: Former Cigarettes Q uit: 09/28/2017 Smokeless Tobacco: Never Alcohol Use Standard Drinks/Week Comments No 0 [...] for your loved ones. For example, child care team lead or elderly care for an older adult? [...] on file Sexual Orientation Not on file documented as of this encounter Progress Notes * Airam Sue - 11/21/2024 10:28 AM EDT Prior Authorization for Medication-do not complete and send this encounter unless you have the fax from the pharmacy. Is this a Cover My Meds request: Yes -- Fry Code [id number] Name of Medication Zepbound Dose of Medication What is the RX # from the faxed refill? How does patient take this med? What Pharmacy did the fax come from: [facility] [address] [facility] [facility] [address] Pharmacy fax #: [phone] [employer] Information from fax: What Prescription Plan does the patient have? BIN/PCN if applicable: Cardholder ID: Person Code: Relationship Code: Help desk phone: documented in this encounter Plan of Treatment Upcoming Encounters Date Type Department Care Team (Late st Contact Info) Description 12/18/2024 1:15 PM EDT Office Visit Adult Medicine [facility] [address] [place] [address] Diogenes Mcgrath PA [address] [place] [address] 03/25/2025 9:10 AM EDT Office Visit Pulmonolgy - [place] [address] [facility] [address] [place] [address] Becky Friedman NP [address] [facility] [address] [place] [address] documented as of this encounter Visit Diagnoses Not on filedocumented in this encounter Additional Health Concerns Assessment Noted Time PHQ-9 Depression Total Score: 0 08/21/20 24 6:48 PM EST documented as of this encounter Care Teams Assembly Line Inspector Relationship Specialty Start Date End Date Maria Elena Miller MD [address] [place] [address] PCP - General Internal Medicine 05/10/22 documented as of this encounter
== END 2024-12-12 11:38 | disposition home or self-care (01) ==
LOC: HO.HBS 10:52
PROVIDERS: PCP Family Medicine; Visit Provider Physician Assistant Surgical
DX: E66.813 Obesity, class 3 (principal); Z68.41 Body mass index [BMI] 40.0-44.9, adult; Z90.3 Acquired absence of stomach [part of]; Z98.84 Bariatric surgery status
CPT/HCPCS: 99214

== ENCOUNTER → 2024-12-12 10:51 | Outpatient (BNVA) | payer OTHER, SELFPAY | PROVIDERS: PCP Family Medicine; Visit Provider Physician Assistant Surgical ==

== ENCOUNTER 2024-12-13 06:55 | Outpatient (REF) | payer OTHER, SELFPAY ==
[2024-12-13 07:11] LABS: MANUAL DIFF FLAG NO
[2024-12-13 07:43] LABS: Basophils Percent Auto 0.5 % (0-2); Eosinophils Absolute Auto 0.1 X10*3/uL (0.0-0.4); Eosinophils Percent Auto 1.7 % (0-4); Hematocrit 38.9 % (37.0-47.0); Hemoglobin 12.7 g/dl (12.0-16.0); Imm Gran Abs Auto 0.03 X10*3/uL (0.00-0.03); Imm Gran Pct Auto 0.4 % (0.0-0.4); Lymphocytes Absolute Auto 3.6 X10*3/uL (1.2-4.9); Mean Corpuscular HGB Conc 32.6 g/dl (31.0-35.0); Mean Corpuscular Hemoglobin 27.2 pg (27.0-33.0); Mean Corpuscular Volume 83.3 fL (80.0-98.0); Mean Platelet Volume 10.8 fL (9.4-12.3); Monocytes Absolute Auto 0.5 X10*3/uL (0.1-1.2); Monocytes Percent Auto 6.4 % (2-11); Neutrophils Absolute Auto 3.7 x10*3/uL (2.0-8.3); Platelet Count 253 X10*3/uL (160-400); Red Blood Count 4.67 X10*6/uL (4.20-5.50); Red Cell Distribution Width 13.3 % (11.0-16.0); White Blood Count 8.1 X10*3/uL (4.8-10.8)
[2024-12-13 07:49] LABS: Estimated Average Glucose 117 mg/dL; Hemoglobin A1C 131.3381 umol/L; Hemoglobin A1c % 5.7 % (<6.0); Total Hemoglobin (HGBA1C) 3391.6328 umol/L
[2024-12-13 08:41] LABS: Alanine Aminotransferase 21 U/L (0-31); Albumin Level 4.1 g/dL (3.5-5.0); Alkaline Phosphatase 149 U/L (39-117); Anion Gap 10 (12-20); Aspartate Amino Transferase 18 U/L (5-31); Bilirubin Total 0.7 mg/dL (0.0-1.0); Blood Urea Nitrogen 11 mg/dL (9-16); C Reactive Protein 0.24 mg/dL (< or = 0.50); Calcium 8.9 mg/dL (8.4-10.2); Carbon Dioxide 24 mmol/L (22-29); Chloride 112 mmol/L (96-108); Cholesterol 173 mg/dL (<200); Estimated Glomerular Filt Rate > 60; Glucose Random 115 mg/dL (60-115); HDL Cholesterol 52 mg/dL (>40); Iron 61 mcg/dL (30-160); LDL Cholesterol Calculated 100 mg/dL (<100); Percent Iron Saturation 22 % (15-50); Sodium 142 mmol/L (135-145); Total Iron Binding Capacity 283 mcg/dL (228-428); Triglycerides 105 mg/dL (<150); Unsaturated Iron Binding 222 ug/dL
[2024-12-13 08:53] LABS: Folate 6.9 ng/mL (> or = 4.0); Vitamin B12 571 pg/mL (200-900)
[2024-12-13 08:55] LABS: Ferritin 39 ng/mL (10-250); TSH reflex Free T4 1.94 uIU/mL (0.32-4.0); Vitamin D 25-OH Total 28.9 ng/mL (>30)
[2024-12-13 13:29] LABS: Insulin 14 uU/mL (2-29)
[2024-12-17 05:02] LABS: Zinc 99 mcg/dL (60-130)
[2024-12-18 01:53] LABS: Vitamin A 44 mcg/dL (38-98)
[2024-12-31 15:18] LABS: Vitamin B1 11 nmol/L (8-30)
== END 2024-12-13 06:56 | disposition home or self-care (01) ==
LOC: HO.LAB 06:55
PROVIDERS: PCP Internal Medicine; Visit Provider Physician Assistant Surgical
DX: E55.9 Vitamin D deficiency, unspecified (principal); Z98.84 Bariatric surgery status; F41.9 Anxiety disorder, unspecified; K76.0 Fatty (change of) liver, not elsewhere classified; Z13.1 Encounter for screening for diabetes mellitus
CPT/HCPCS: 36415; 80053; 80061; 82306; 82607; 82728; 82746; 83036; 83525; 83540; 84425; 84443; 84590; 84630; 85025; 86140